=== PATIENT | male | born 1940 | race Caucasian/White ===

== ENCOUNTER 2021-05-15 07:07 | Outpatient (REF) | payer MEDICARE, SELFPAY ==
[2021-05-15 11:16] LABS: MANUAL DIFF FLAG NO
[2021-05-15 11:22] LABS: Glucose Urine UA NEG (NEG); Leukocyte Esterase Urine NEG (NEG); Nitrite Urine NEG (NEG); Specific Gravity - Urine 1.025 (1.005-1.025); Urine Blood TRACE (NEG); Urine Ketones NEG (NEG); Urine Protein NEG (NEG-TRACE)
[2021-05-15 11:23] LABS: Appearance Urine CLEAR; Color Urine YELLOW
[2021-05-15 11:33] LABS: Basophils Absolute Auto 0.1 X10*3/uL (0.0-0.2); Basophils Percent Auto 0.8 % (0-2); Eosinophils Absolute Auto 0.4 X10*3/uL (0.0-0.4); Eosinophils Percent Auto 6.4 % (0-4); Hematocrit 40.8 % (42-52); Hemoglobin 13.1 g/dl (14.0-18.0); Imm Gran Abs Auto 0.03 X10*3/uL (0.00-0.03); Imm Gran Pct Auto 0.5 % (0.0-0.4); Lymphocytes Absolute Auto 1.2 X10*3/uL (1.2-4.9); Lymphocytes Percent Auto 17.9 % (20-40); Mean Corpuscular HGB Conc 32.1 g/dl (31.0-36.0); Mean Corpuscular Hemoglobin 30.1 pg (27.0-33.0); Mean Corpuscular Volume 93.8 fL (80-98); Mean Platelet Volume 9.5 fL (9.4-12.4); Monocytes Absolute Auto 0.7 X10*3/uL (0.1-1.2); Monocytes Percent Auto 10.3 % (2-11); Neutrophils Absolute Auto 4.1 X10*3/uL (2.0-8.3); Neutrophils Percent Auto 64.1 % (45-73); Platelet Count 214 X10*3/uL (160-400); Red Blood Count 4.35 X10*6/uL (4.60-5.80); Red Cell Distribution Width 13.5 % (11.0-16.0); White Blood Count 6.4 X10*3/uL (4.8-10.8)
[2021-05-15 11:53] LABS: Alanine Aminotransferase 25 U/L (0-40); Albumin Level 4.1 g/dL (3.5-5.0); Alkaline Phosphatase 62 U/L (39-117); Anion Gap 13 (12-20); Aspartate Amino Transferase 24 U/L (5-37); Bilirubin Total 0.5 mg/dL (0.0-1.0); Blood Urea Nitrogen 17 mg/dL (9-16); Calcium 9.3 mg/dL (8.4-10.2); Carbon Dioxide 26 mmol/L (22-29); Chloride 104 mmol/L (96-108); Cholesterol 176 mg/dL; Estimated Glomerular Filt Rate > 60; Glucose Fasting 114 mg/dL (60-99); HDL Cholesterol 54 mg/dL; LDL Cholesterol Calculated 101 mg/dl; Potassium 4.6 mmol/L (3.3-5.1); Sodium 138 mmol/L (135-145); Total Protein 6.5 g/dL (6.5-8.0); Triglycerides 107 mg/dL
[2021-05-15 12:04] LABS: Prostate Specific Antigen 0.62 ng/mL (<0.05-4.0)
[2021-05-15 12:06] LABS: Mucus Urine 1+ /LPF; WBC Urine 0-2 /HPF (0-4)
== END 2021-05-15 07:08 | disposition home or self-care (01) ==
LOC: HO.HMGCLDS 07:07
PROVIDERS: PCP Internal Medicine; Visit Provider Internal Medicine
DX: Z00.00 Encounter for general adult medical examination without abnormal findings (principal); I10 Essential (primary) hypertension; E78.00 Pure hypercholesterolemia, unspecified; N40.0 Benign prostatic hyperplasia without lower urinary tract symptoms; Z12.5 Encounter for screening for malignant neoplasm of prostate
CPT/HCPCS: 36415; 80053; 80061; 81001; 84153; 85025

== ENCOUNTER 2021-11-19 09:22 | Emergency (ER) | payer MEDICARE, SELFPAY ==
--- NOTE | 2021-11-19 | ECG_ITS ---
Test Reason : arrhythmia Blood Pressure : / mmHG Vent. Rate : 105 BPM Atrial Rate : 344 BPM P-R Int : 000 ms QRS Dur : 078 ms QT Int : 322 ms P-R-T Axes : 064 015 055 degrees QTc Int : 425 ms Atrial flutter with variable A-V block Nonspecific T wave abnormality Abnormal ECG No previous ECGs available Referred By: Generic ED Physician Electronically Signed By:PIERRE PEREZ MD
--- NOTE | ~2021-11-19 | XR_ITS ---
EXAMINATION: XR CHEST CLINICAL INFORMATION: Heart palpitations COMPARISON: None TECHNIQUE: Frontal view of the chest was obtained. FINDINGS: The cardiac and mediastinal contours are normal. The lungs are clear. There is no pleural effusion or pneumothorax. There are degenerative changes of the spine. XR/XR chest 1V IMPRESSION: Unremarkable examination.
[2021-11-19 09:29] VITALS: BP 126/72; PULSE 69; RESP 20; TEMP 36.6; O2SAT 98; BMI 23.6
--- NOTE | 2021-11-19 09:42 | ED.ARRPALP ---
HPI - Arrhythmia/Palpitations General Chief Complaint: Arrhythmia/Palpitations Stated Complaint: irregular heart beat Time Seen by Provider: 11/19/21 09:41 Source: patient Mode of arrival: ambulatory Limitations: no limitations History of Present Illness HPI narrative: 81 y/o male with history of HTN and HLD presents to the ER from his PCP's (Dr. Truong) office with rapid atrial flutter found on routine visit today. Patient reports he has a history of an irregular heart beat that Dr. Truong found from time to time but he never thought much of it. He has never seen a Acid Recovery Operator and he is not on anticoagulation. He denies any chest pain, SOB, pre-syncope, or fatigue. Today Dr. Truong found his heart rate to be fast and in an irregular rhythm. He denies palpitations. No leg swelling. He is on lisinopril and simvastatin only. MD complaint: irregular heart beat Onset (ago): unknown Duration: intermittent Severity: mild Associated symptoms: denies other symptoms Related Data Previous Rx's Medication Instructions Recorded apixaban 5 mg tablet (Eliquis) 5 mg PO BID #60 tab 11/19/21 metoprolol succinate 25 mg 25 mg PO DAILY #30 tab 11/19/21 tablet,extended release 24 hr (Toprol XL) Allergies Allergy/AdvReac Type Severity Reaction Status Date / Time No Known Allergies Allergy Verified 11/19/21 09:57 Review of Systems Review of Systems: Constitutional: No Fever, No Chills ENT/Mouth: No sore throat, No Rhinorrhea, No Swallowing Difficulty Eyes: No vision changes Cardiovascular: No Chest Pain, No SOB, No Orthopnea, No Edema Respiratory: No Cough, No Sputum, No Wheezing, No dyspnea Gastrointestinal: No Nausea, No Vomiting, No Diarrhea, No abdominal Pain Genitourinary: No Dysuria, No Urinary Frequency, No Hematuria Musculoskeletal: No joint pain, No Myalgias Skin: No Skin Lesions, No rash Neuro: No Weakness, No Numbness, No Dizziness, No Headache Psych: No Anxiety/Panic, No Depression Heme/Lymph: No Bruising, No Lymphadenopathy Endocrine: No Polyuria, No Polydipsia [facility] Past Medical History Medical History (Updated 11/19/21 @ 12:36 by RUIZ Dumont) High cholesterol HTN (hypertension) Social History Social History Advance Directives: Yes Advance Directives Information Provided: Yes Advance Directives on File: No Physical Exam Vital Signs: Vital Signs: Last Vital Signs Temp 98 F 11/19/21 09:29 Pulse 87 11/19/21 12:13 Resp 16 11/19/21 12:13 BP 140/83 H 11/19/21 12:13 Pulse Ox 98 11/19/21 12:13 BMI result Body Mass Index 23.6 Appearance: Alert. Oriented X3. No acute distress. Eyes: Pupils equal, round and reactive to light. ENT: Pharynx normal. Neck: Normal inspection. Neck supple. CVS: Irregularly irregular, rapid rate in low 100s. Pulses normal. Respiratory: No respiratory distress. Breath sounds normal. Abdomen: Soft and nontender. +BS x4 Skin: Skin warm and dry. Normal skin color. Normal skin turgor. No rashes. Extremities: No lower extremity edema. No calf tenderness Neuro: Oriented X 3. No motor deficit. No sensory deficit. Course Course Course Narrative: 81 y/o male with history of HTN & HLD presents to the ER with rapid atrial flutter found on routine exam at PCP's office today. He is asymptomatic. On arrival his HR 69. EKG with HR 105. 20 in the PA for Na was the leading all in for the 5 year program for the 5 for the thigh area the change no was fall from the beginning and then they switched to sit has assorted then like he well use for to 5 now it it is for what ongoing over the was they were taking you in as transfer the plate into the program after out yet yet the sign that upon transfer as a grad to the last thing she last a they were taking she review his arm everybody your blood I will see like 15 years like [employer] interfering in her hi new 2. Like wheeze phone numbers or ear CHADSVASc is 3. Will need to discuss risks and benefits of anticoagulation. He reports a slip and fall on ice 2 weeks ago - no head strike or LOC. No hx multiple falls. Reevaluation(s) Reevaluation #1: HR improved to the 80s after 1 dose of PO Toprol XL 25 mg. BP 140s. He feels well. We had a discussion about the risks and benefits of anticoagulation and patient agrees with starting anticoagulation to help reduce stroke. Will send 1 month supply of Eliquis as well as Toprol XL. Will refer to Cardiology for further workup. He will follow-up with Dr. Truong as well. At this time is stable for discharge home with Toby RIVERO and Martinez. Patient agrees with plan. MDM - Arrhythmia/Palpitations Medical Records Attestation: I reviewed the patient's medical records. Lab Data Attestation: I reviewed the patient's lab results. Result diagrams: 11/19/21 10:17 11/19/21 10:17 Labs: Lab Results 11/19/21 11/19/21 11/19/21 Range/Units 10:17 10:17 10:17 WBC 7.2 (4.8-10.8) X10*3/uL RBC 4.56 L (4.60-5.80) X10*6/uL Hgb 13.7 L (14.0-18.0) g/dl Hct 42.6 (42.0-52.0) % MCV 93.4 (80.0-98.0) fL MCH 30.0 (27.0-33.0) pg MCHC 32.2 (31.0-36.0) g/dl RDW 13.4 (11.0-16.0) % Plt Count 177 (160-400) X10*3/uL MPV 8.9 L (9.4-12.4) fL Immature Gran % (Auto) 0.1 (0.0-0.4) % Neut % (Auto) 73.2 H (45-73) % Lymph % (Auto) 13.1 L (20-40) % Russell % (Auto) 9.2 (2-11) % Eos % (Auto) 3.8 (0-4) % Baso % (Auto) 0.6 (0-2) % Lymph # (Auto) 0.9 L (1.2-4.9) X10*3/uL Russell # (Auto) 0.7 (0.1-1.2) X10*3/uL Eos # (Auto) 0.3 (0.0-0.4) X10*3/uL Baso # (Auto) 0.0 (0.0-0.2) X10*3/uL Abs Immat Gran (auto) 0.01 (0.00-0.03) X10*3/uL Absolute Neuts (auto) 5.2 (2.0-8.3) x10*3/uL Absolute Nucleated RBC 0.000 (0.0-0.012) X10*3/uL Nucleated RBC % (auto) 0.0 (0.0-0.2) /100WBC PT 11.4 (9.9-13.0) SEC INR 1.0 (0.9-1.1) APTT 35.5 (24.1-38.0) SEC Sodium 142 (135-145) mmol/L Potassium 5.0 (3.3-5.1) mmol/L Chloride 107 (96-108) mmol/L Carbon Dioxide 29 (22-29) mmol/L Anion Gap 11 L (12-20) BUN 19 H (9-16) mg/dL Creatinine 0.92 (0.5-1.4) mg/dL Estim Creat Clear Calc 70.2 Estimated GFR > 60 Random Glucose 130 H (60-115) mg/dL Calcium 9.5 (8.4-10.2) mg/dL Magnesium 2.0 (1.6-2.6) mg/dL Total Bilirubin 0.5 (0.0-1.0) mg/dL Direct Bilirubin 0.2 (0.0-0.5) mg/dL AST 21 (5-37) U/L ALT 22 (0-40) U/L Alkaline Phosphatase 72 (39-117) U/L Troponin I High Sens (<3.5-35.0) ng/L B-Natriuretic Peptide (<100) pg/mL Total Protein 6.9 (6.5-8.0) g/dL Albumin 4.1 (3.5-5.0) g/dL Urine Color Urine Appearance Urine pH (5.0-8.0) Ur Specific Mason (1.005-1.025) Urine Protein (NEG-TRACE) MG/DL Urine Glucose (UA) (NEG) MG/DL Urine Ketones (NEG) MG/DL Urine Blood (NEG) Urine Nitrite (NEG) Ur Leukocyte Esterase (NEG) Urine RBC (0) /HPF Urine WBC (0-4) /HPF Ur Squamous Epith Cells /LPF Urine Bacteria /LPF Urine Mucus /LPF COVID-19 ([facility]) (Negative) COVID-19 Clin Com 11/19/21 11/19/21 11/19/21 Range/Units 10:17 10:17 10:46 WBC (4.8-10.8) X10*3/uL RBC (4.60-5.80) X10*6/uL Hgb (14.0-18.0) g/dl Hct (42.0-52.0) % MCV (80.0-98.0) fL MCH (27.0-33.0) pg MCHC (31.0-36.0) g/dl RDW (11.0-16.0) % Plt Count (160-400) X10*3/uL MPV (9.4-12.4) fL Immature Gran % (Auto) (0.0-0.4) % Neut % (Auto) (45-73) % Lymph % (Auto) (20-40) % Russell % (Auto) (2-11) % Eos % (Auto) (0-4) % Baso % (Auto) (0-2) % Lymph # (Auto) (1.2-4.9) X10*3/uL Russell # (Auto) (0.1-1.2) X10*3/uL Eos # (Auto) (0.0-0.4) X10*3/uL Baso # (Auto) (0.0-0.2) X10*3/uL Abs Immat Gran (auto) (0.00-0.03) X10*3/uL Absolute Neuts (auto) (2.0-8.3) x10*3/uL Absolute Nucleated RBC (0.0-0.012) X10*3/uL Nucleated RBC % (auto) (0.0-0.2) /100WBC PT (9.9-13.0) SEC INR (0.9-1.1) APTT (24.1-38.0) SEC Sodium (135-145) mmol/L Potassium (3.3-5.1) mmol/L Chloride (96-108) mmol/L Carbon Dioxide (22-29) mmol/L Anion Gap (12-20) BUN (9-16) mg/dL Creatinine (0.5-1.4) mg/dL Estim Creat Clear Calc Estimated GFR Random Glucose (60-115) mg/dL Calcium (8.4-10.2) mg/dL Magnesium (1.6-2.6) mg/dL Total Bilirubin (0.0-1.0) mg/dL Direct Bilirubin (0.0-0.5) mg/dL AST (5-37) U/L ALT (0-40) U/L Alkaline Phosphatase (39-117) U/L Troponin I High Sens 7.8 (<3.5-35.0) ng/L B-Natriuretic Peptide 491 H (<100) pg/mL Total Protein (6.5-8.0) g/dL Albumin (3.5-5.0) g/dL Urine Color YELLOW Urine Appearance HAZY Urine pH 6.0 (5.0-8.0) Ur Specific Mason >= 1.030 H (1.005-1.025) Urine Protein TRACE (NEG-TRACE) MG/DL Urine Glucose (UA) NEG (NEG) MG/DL Urine Ketones NEG (NEG) MG/DL Urine Blood 1+ H (NEG) Urine Nitrite NEG (NEG) Ur Leukocyte Esterase NEG (NEG) Urine RBC 1-4 (0) /HPF Urine WBC 0 (0-4) /HPF Ur Squamous Epith Cells TRACE /LPF Urine Bacteria NONE /LPF Urine Mucus 2+ /LPF COVID-19 ([facility]) Negative (Negative) COVID-19 Clin Com See Note ECG Data Attestation: I personally reviewed and interpreted this ECG as follows: ECG interpretation date: 11/19/21 ECG interpretation time: 10:45 Prior ECG tracings: available for review Interpretation: Atrial flutter, heart rate 105 beats per minute, nonspecific T-wave abnormality, no ST segment elevations or depressions. Critical Care Time Critical Care Time Critical Care Time: No Discharge Plan Discharge Clinical Impression: Atrial flutter Patient Disposition: Home, Self-Care Instructions: Atrial Flutter (DC), Blood Thinners (ED) Additional Instructions: Take the prescribed medication (Toprol XL) each morning to help control your heart rates Take the prescribed blood thinner (Eliquis) to help reduce the risk of stroke Follow up with [facility] Recovery Operator for further workup and evaluation Follow up with Dr. Truong in 1 week If you develop new or worsening symptoms call 911 or come back to the ER for further evaluation. Prescriptions: New metoprolol succinate [Toprol XL] 25 mg tablet extended release 24 hr 25 mg PO DAILY Qty: 30 0RF Eliquis 5 mg tablet 5 mg PO BID Qty: 60 0RF Referrals: Jb Perez MD [Physician] - 2 days (new onset aflutter)
[2021-11-19 10:23] LABS: MANUAL DIFF FLAG NO
[2021-11-19 10:26] LABS: Basophils Percent Auto 0.6 % (0-2); Eosinophils Absolute Auto 0.3 X10*3/uL (0.0-0.4); Eosinophils Percent Auto 3.8 % (0-4); Hematocrit 42.6 % (42.0-52.0); Hemoglobin 13.7 g/dl (14.0-18.0); Imm Gran Abs Auto 0.01 X10*3/uL (0.00-0.03); Imm Gran Pct Auto 0.1 % (0.0-0.4); Lymphocytes Absolute Auto 0.9 X10*3/uL (1.2-4.9); Lymphocytes Percent Auto 13.1 % (20-40); Mean Corpuscular HGB Conc 32.2 g/dl (31.0-36.0); Mean Corpuscular Volume 93.4 fL (80.0-98.0); Mean Platelet Volume 8.9 fL (9.4-12.4); Monocytes Absolute Auto 0.7 X10*3/uL (0.1-1.2); Monocytes Percent Auto 9.2 % (2-11); Neutrophils Absolute Auto 5.2 x10*3/uL (2.0-8.3); Neutrophils Percent Auto 73.2 % (45-73); Platelet Count 177 X10*3/uL (160-400); Red Blood Count 4.56 X10*6/uL (4.60-5.80); Red Cell Distribution Width 13.4 % (11.0-16.0); White Blood Count 7.2 X10*3/uL (4.8-10.8)
[2021-11-19 10:30] VITALS: BP 149/95; PULSE 110; RESP 16; O2SAT 99
[2021-11-19 10:33] LABS: Prothrombin Time 11.4 SEC (9.9-13.0)
[2021-11-19 10:36] LABS: Partial Thromboplastin Time 35.5 SEC (24.1-38.0)
[2021-11-19] MEDS: Metoprolol Succinate ER 25 MG TAB.ER.24H PO (10:43)
[2021-11-19 10:49] LABS: Troponin-I High Sensitivity 7.8 ng/L (<3.5-35.0)
[2021-11-19 10:54] LABS: Alanine Aminotransferase 22 U/L (0-40); Albumin Level 4.1 g/dL (3.5-5.0); Alkaline Phosphatase 72 U/L (39-117); Anion Gap 11 (12-20); Aspartate Amino Transferase 21 U/L (5-37); Bilirubin Direct 0.2 mg/dL (0.0-0.5); Bilirubin Total 0.5 mg/dL (0.0-1.0); Blood Urea Nitrogen 19 mg/dL (9-16); Calcium 9.5 mg/dL (8.4-10.2); Carbon Dioxide 29 mmol/L (22-29); Chloride 107 mmol/L (96-108); Creatinine Clr Calc Pharmacy 70.2; Estimated Glomerular Filt Rate > 60; Glucose Random 130 mg/dL (60-115); Sodium 142 mmol/L (135-145); Total Protein 6.9 g/dL (6.5-8.0)
[2021-11-19 10:55] LABS: Appearance Urine HAZY; Color Urine YELLOW; Glucose Urine UA NEG (NEG); Leukocyte Esterase Urine NEG (NEG); Nitrite Urine NEG (NEG); Specific Gravity - Urine >= 1.030 (1.005-1.025); UACC Culture Trigger NO; Urine Blood 1+ (NEG); Urine Ketones NEG (NEG); Urine Protein TRACE MG/DL (NEG-TRACE)
[2021-11-19 11:02] LABS: COVID-19 Test Negative (Negative)
[2021-11-19 11:11] LABS: Mucus Urine 2+ /LPF; Squamous Epithelial Cell Urine TRACE /LPF; WBC Urine 0 /HPF (0-4)
[2021-11-19 11:14] LABS: B Type Natriuretic Peptide 491 pg/mL (<100)
[2021-11-19 12:13] VITALS: BP 140/83; PULSE 87; RESP 16; O2SAT 98
== END 2021-11-19 13:00 | disposition home or self-care (01) ==
PROVIDERS: Physician Assistant; Emergency Provider Emergency Medicine; PCP Internal Medicine
DX: I48.92 Unspecified atrial flutter (principal); R00.2 Palpitations; R06.02 Shortness of breath; Z20.822 Contact with and (suspected) exposure to COVID-19; Z79.899 Other long term (current) drug therapy
CPT/HCPCS: 36415; 71045; 80048; 80076; 81001; 83735; 83880; 84484; 85025; 85610; 85730; 87635; 93005; 99284

== ENCOUNTER → 2021-11-20 11:53 | Outpatient (BNVA) | payer MEDICARE, SELFPAY | PROVIDERS: PCP Internal Medicine; Visit Provider Internal Medicine Cardiovascular Disease | DX: I48.92 Unspecified atrial flutter (principal); I10 Essential (primary) hypertension | CPT/HCPCS: 93005; 99202 ==

== ENCOUNTER → 2021-11-21 12:54 | Outpatient (REF) | payer MEDICARE, SELFPAY ==
--- NOTE | 2021-11-21 12:59 | CA_ITS ---
Transthoracic Echocardiogram Patient (Last, First, Middle): Gregory Dior K Gender: Male Date of : 1940 Age: 81 Procedure Date: 11/21/2021 Procedure Type: Transthoracic Echocardiogram Location: OP Height: 185.42 cm Weight: 78.93 kg BSA: 2.03 m2 Heart Rate: bpm BP: 120 / 75 mmHg Pulp Grinder Feeder: Referring MD: Kasi Pike MD Catia Designer: Kasi Pike MD Symptoms: I48.92 - Unspecified atrial flutter Study Quality: Fair ECG Rhythm: Atrial flutter Conclusions: - 1. Mildly reduced LV systolic function with LVEF of 45-50% 2. Cardiac valvular Doppler within normal limits 3. Normal RV systolic pressure 4. No gross pericardial effusion Findings Left Ventricle Normal left ventricular cavity size. There is normal left ventricular wall thickness. The left ventricular systolic function is mildly decreased. The visually estimated ejection fraction is between 45-50%. There is mild global hypokinesis. Diastolic function is indeterminate on the basis of available data. Right Ventricle Normal right ventricular cavity size and systolic function. Atria The left atrium is likely dilated. There is lipomatous hypertrophy of the interatrial septum. There is no evidence of interatrial shunt. The right atrium is normal in size. Aortic Valve There is mild calcification of the aortic valve. There is no aortic valve stenosis. There is no aortic valve regurgitation. Mitral Valve There is mild anterior and posterior mitral leaflet thickening. There is mild mitral annular calcification. There is trace mitral valve regurgitation. There is no mitral valve stenosis. Pulmonic Valve The pulmonic valve was not well visualized. Tricuspid Valve Likely normal tricuspid valve structure and function. There is trace tricuspid valve regurgitation. The right ventricular systolic pressure is normal. The right ventricular systolic pressure is 19 mmHg. Normal right atrial pressure. There is no evidence of pulmonary hypertension. Great Vessels All visible segments of the aorta are normal in size. The pulmonary artery was not well visualized. Venous The inferior vena cava is normal in size and collapses greater than 50% with inspiration. Pericardium/Pleural There is no evidence of pericardial effusion. Prior Study Comparison No prior study available for comparison. Measurements 2D Linear Measurements IVSd: 0.99 0.6-0.9/0.6-1.0 cm LVIDd: 4.28 3.9-5.3/4.2-5.9 cm LVIDd Index: 2.11 2.4-3.2/2.2-3.1 cm/m2 LVIDs: 3.15 2.0-3.6 cm LVPWd: 1.03 0.7-1.1 cm LA Diam: 4.20 2.7-3.8/3.0-4.0 cm LAIDs Index: 2.07 1.5-2.3 cm/m2 LV Mass: 178.26 67-162/88-224 g LV Mass Index: 87.81 43-95/49-115 g/m2 LVOT Diam: 2.20 3.0+(-)1.3 cm 2D Systolic Function EF 4C: 47.50 >55% EF 2C: 48.70 >55% EF BiP: 48.70 >55% Mitral Valve MV Pk E: 0.62 MV PK A: 0.57 MV Decel Time: 229.00 E/A: 1.10 E'Lateral: 12.50 E'Medial: 4.68 E/E' Med: 13.30 E/E' Lat: 5.00 PHT: 67.00 MVA PHT: 3.28 Decel [place]: 2.71 Aortic Valve AoV Pk Reggie: 0.92 AoV Mn Reggie: 0.73 AoV VTI: 0.17 AoV Pk Grad: 3.00 Aov Mn Grad: 2.00 LUBNA Cont.VTI: 2.47 LVOT LVOT Pk Reggie: 0.71 LVOT Mn Reggie: 0.46 LVOT VTI: 0.11 LVOT Pk Grad: 2.00 LVOT Mn Grad: 1.00 LVOT Diam: 2.20 LVOT Area: 3.80 Diastolic Function MV Pk E: 0.62 MV Pk A: 0.57 E/A: 1.10 E'Medial: 4.68 E/E' Med: 13.30 E' Laterial: 12.50 E/E' Lat: 5.00 Right Ventricle TAPSE (mm): 15.00 TVS' Reggie: 9.00 Tricuspid Valve TR Pk Reggie: 16.00 RA Press: 3.00 RVSP: 19.00 Great Vessels Aorta Ao Asc: 3.40 2.1-3.4 cm Pulmonary Valve PV Pk Reggie: 0.57 Peak PV Grad: 1.00 Updated in Other Vendor System with Status of Final Kasi Pike MD electronically signed on 11/22/2021 11:34:47 AM with status of Final
--- NOTE | 2021-11-21 12:59 | HM_ITS ---
Conclusion: 1. Patient was monitored for total period of 2 days and 22 hours 2. Baseline with atrial flutter/fibrillation with average heart of 91 beats per minute, with borderline rate control 3. No significant pauses or bradycardia noted 4. Very rare PVCs noted 5. No patient reported events MTDD
== END ==
LOC: HO.CARD 12:54
PROVIDERS: PCP Internal Medicine; Visit Provider Internal Medicine Cardiovascular Disease
DX: I48.92 Unspecified atrial flutter (principal)
CPT/HCPCS: 93242; 93306

== ENCOUNTER 2021-12-17 09:12 | Day surgery (SDC) | payer MEDICARE, SELFPAY ==
[2021-12-12 14:41] VITALS: BMI 23.6
--- NOTE | 2021-12-16 09:35 | HO.ANESPROP2 ---
Documented by User: Nadya Gutierrez NP 12/16/21 09:39 HPI - Anesthesia Eval Consult details Narrative: 81yo M for Cardioversion Eliquis for aflutter PMFSH Active Problems Active Problems: All Active Problems (Updated 12/12/21 @ 14:44 by Yadi Wade RN) HTN (hypertension) (Acute) Atrial flutter (Acute) Past Medical History Medical History (Updated 12/12/21 @ 14:44 by Yadi Wade RN) Atrial flutter Hard of hearing High cholesterol HTN (hypertension) Surgical History Surgical History (Updated 12/12/21 @ 14:45 by Yadi Wade RN) History of surgery Hx of colonoscopy Social History Social History Are you a primary intensive care ambulance paramedic to a significant other at home: No Do you presently have visiting nurse or other home services: No Patient Tobacco Use Status: Former Tobacco user Quit Date: 2001 Tobacco use type: Cigarette Are you DNR?: No Advance Directives: No Advance Directives Information Provided: Yes Advance Directives on File: No Recently lost weight without trying: No Nutrition Risks: Surgical patient >75years Poor oral hygiene: No (upper partial) Meds Allergies Allergy/AdvReac Type Severity Reaction Status Date / Time No Known Allergies Allergy Verified 12/12/21 14:40 Home Medications Medication Instructions Recorded Confirmed Last Taken Type lisinopril 5 mg tablet 5 mg PO DAILY 11/20/21 12/12/21 Unknown History simvastatin 20 mg tablet 20 mg PO BEDTIME 11/20/21 12/12/21 Unknown History Exam Exam Date and Time: December 16, 2021 0935 Height,Weight and Vital Signs: Height 6 ft Weight 78.925 kg Pertinent Lab Results Pertinent Lab Results: Laboratory Tests 11/19/21 11/19/21 10:17 10:17 WBC 7.2 Hgb 13.7 L Hct 42.6 Plt Count 177 Sodium 142 Potassium 5.0 Chloride 107 Carbon Dioxide 29 BUN 19 H Creatinine 0.92 Narrative Narrative: EKG 11/2021 typical atrial flutter with variable AV conduction with LVH 3 Day Holter 11/2021 1. Patient was monitored for total period of 2 days and 22 hours 2. Baseline with atrial flutter/fibrillation with average heart of 91 beats per minute, with borderline rate control 3. No significant pauses or bradycardia noted 4. Very rare PVCs noted 5. No patient reported events ECHO 11/2021 Conclusions: - 1. Mildly reduced LV systolic function with LVEF of 45-50% ? ? 2.? Cardiac valvular Doppler within normal limits? 3.? Normal RV systolic pressure? 4. No gross pericardial effusion? Assessment and Plan Assessment Anesthesia Assessment: Chart Reviewed Documented by User: Ya Aragon MD 12/17/21 10:30 PMFSH Past Medical History Medical History (Updated 12/12/21 @ 14:44 by Yadi Wade RN) Atrial flutter Hard of hearing High cholesterol HTN (hypertension) Family History Family history of problems with anesthesia: No Surgical History Surgical History (Updated 12/12/21 @ 14:45 by Yadi Wade RN) History of surgery Hx of colonoscopy History of Problems with Anesthesia: No Social History Social History Are you a primary intensive care ambulance paramedic to a significant other at home: No Do you presently have visiting nurse or other home services: No Patient Tobacco Use Status: Former Tobacco user Quit Date: 2001 Tobacco use type: Cigarette Are you DNR?: No Advance Directives: No Advance Directives Information Provided: Yes Advance Directives on File: No Recently lost weight without trying: No Nutrition Risks: Surgical patient >75years Poor oral hygiene: No (upper partial) Meds Allergies Allergy/AdvReac Type Severity Reaction Status Date / Time No Known Allergies Allergy Verified 12/12/21 14:40 Home Medications Medication Instructions Recorded Confirmed Last Taken Type lisinopril 5 mg tablet 5 mg PO DAILY 11/20/21 12/12/21 Unknown History simvastatin 20 mg tablet 20 mg PO BEDTIME 11/20/21 12/12/21 Unknown History Exam Airway Mallampati Class: II TM Dist: >3cm Neck ROM: Full Partial: Upper (Left at home) Heart: irreg Lungs: cta Assessment and Plan Assessment Anesthesia Assessment: Anesthesia Plan Discussed and Chart Reviewed Final Anesthetic Review Family History of Problems with Anesthesia: No History of Problems with Anesthesia: No NPO: Yes (Sip water with meds) ASA Class: III Final Preanesthetic Review: No Changes in Pt Med Stat, Meds/Allgs Chart Reviewed and Consent Obtained/Reviewed Patient Risk: Intermediate Procedure Risk: Intermediate Anesthetic Plan Anesthetic Plan: MAC: Disposition: Standard PACU
[2021-12-17 09:30] VITALS: BP 145/89; PULSE 106; RESP 16; TEMP 36.8; O2SAT 98; BMI 23.6
[2021-12-17] MEDS: Lactated Ringers 1,000 ML 100 ML IVCONT (09:47)
--- NOTE | 2021-12-17 10:53 | MHC.SHP ---
Pre-Procedural Eval Section A Date of Service: 12/17/21 The patient is an INPATIENT: No Changes since office visit: Yes Patient answered all questions; No Cold of Flu in the past 2 weeks, No New Medical Problems and No Changes in Medication The History & Physical has been completed within 30 days and I have reviewed it.: Yes Section B Chief Complaint: A-Fib Allergies: Allergies Allergy/AdvReac Type Severity Reaction Status Date / Time No Known Allergies Allergy Verified 12/12/21 14:40 Plan I have reviewed the history and physical and performed a pertinent physical examination on my patient. No changes have occurred unless specified.
--- NOTE | 2021-12-17 11:12 | ECG_ITS ---
Test Reason : S/P CARDIOVERSION Blood Pressure : / mmHG Vent. Rate : 072 BPM Atrial Rate : 072 BPM P-R Int : 182 ms QRS Dur : 084 ms QT Int : 384 ms P-R-T Axes : 039 019 044 degrees QTc Int : 420 ms Normal sinus rhythm Normal ECG When compared with ECG of 19-NOV-2021 10:20, Sinus rhythm has replaced Atrial flutter Nonspecific T wave abnormality, improved in Inferior leads Nonspecific T wave abnormality no longer evident in Anterolateral leads Referred By: Kasi Pike Electronically Signed By:KASI PIKE MD
--- NOTE | 2021-12-17 11:22 | HO.CARDIVERS ---
Cardioversion Procedure Note Cardioversion Date of Procedure: Today Ordering Provider: Myself Performing Provider: Myself Indication for Procedure: Persistent atrial flutter Pre-Op Diagnosis: Same Post-Op Diagnosis: Normal sinus rhythm Performed with Transesophageal Echo: No History: See my office note Consent: Verbal and Written consent was obtained from the patient before starting and after confirming oral anticoagulation The patient was made aware of the risk of synchronized cardioversion including risk, benefits, alternatives 2nd opinion Procedure: After consent obtained, cardioversion pads were attached in anteroposterior configuration and the patient was sedated by the anesthesia team. Once adequate sedation achieved, delivered 200 joules of biphasic synchronized energy in anteroposterior configuration Complications: None Impression: Successfully converted to sinus rhythm Recommendations: 1. Twelve lead EKG 2. Continue full oral anticoagulation uninterrupted indefinitely for now 3. Follow-up Holter monitor in office visit in few weeks
[2021-12-17 11:23] VITALS: BP 112/77; PULSE 70; RESP 16; TEMP 36.7; O2SAT 97
[2021-12-17 11:28] VITALS: BP 110/70; PULSE 69; RESP 16; O2SAT 98
[2021-12-17 11:33] VITALS: BP 123/74; PULSE 72; RESP 18; O2SAT 98
[2021-12-17 11:38] VITALS: BP 123/75; PULSE 68; RESP 18; O2SAT 98
[2021-12-17 11:53] VITALS: BP 130/80; PULSE 67; RESP 18; TEMP 36.6; O2SAT 98
== END 2021-12-17 12:24 | disposition home or self-care (01) ==
PROVIDERS: PCP Internal Medicine; Visit Provider Internal Medicine Cardiovascular Disease
PROC: 5A2204Z Restoration of Cardiac Rhythm, Single (ICD-10-PCS; principal; 2021-12-17 11:00)
DX: I48.92 Unspecified atrial flutter (principal); I10 Essential (primary) hypertension; E78.00 Pure hypercholesterolemia, unspecified; Z79.01 Long term (current) use of anticoagulants; Z79.899 Other long term (current) drug therapy; Z87.891 Personal history of nicotine dependence
CPT/HCPCS: 92960; 93005

== ENCOUNTER → 2021-12-30 10:32 | Outpatient (REF) | payer MEDICARE, SELFPAY ==
--- NOTE | 2021-12-30 10:38 | HM_ITS ---
* Total monitoring time 2 days and 22 hours. * Underlying rhythm is atrial flutter. Some areas appear to be atrial fibrillation. Average rate 91/Min. Range 63 to 146/Min. * About 20% the time, rate greater than 100/Min. * Rare ventricular ectopy with minimal burden. * No patient events. * Overall, slightly less than optimal rate control of atrial fibrillation. MTDD
== END ==
LOC: HO.CARD 10:32
PROVIDERS: Visit Provider Internal Medicine Cardiovascular Disease
DX: I48.92 Unspecified atrial flutter (principal)
CPT/HCPCS: 93242

== ENCOUNTER → 2022-01-19 14:36 | Outpatient (BNVA) | payer MEDICARE, SELFPAY | PROVIDERS: PCP Internal Medicine; Referring Provider Internal Medicine; Visit Provider Internal Medicine Cardiovascular Disease | DX: I48.92 Unspecified atrial flutter (principal) | CPT/HCPCS: 93005; 99212 ==

== ENCOUNTER → 2022-07-02 08:16 | Outpatient (REF) | payer MEDICARE, SELFPAY ==
--- NOTE | 2022-07-02 08:43 | CA_ITS ---
Transthoracic Echocardiogram Patient (Last, First, Middle): Gregory Dior K Gender: Male Date of : 1940 Age: 82 Procedure Date: 07/02/2022 Procedure Type: Transthoracic Echocardiogram Location: OP Height: 185.42 cm Weight: 77.11 kg BSA: 2.01 m2 Heart Rate: bpm BP: 150 / 80 mmHg Engineering Illustrator: TO Referring MD: Kasi Pike MD Symptoms: I42.9 - Cardiomyopathy, unspecified Study Quality: Fair ECG Rhythm: Sinus Conclusions: - The left ventricular systolic function is low normal. The calculated ejection fraction is 52% by biplane method. Findings Left Ventricle Normal left ventricular cavity size. There is normal left ventricular wall thickness. The left ventricular systolic function is low normal. The calculated ejection fraction is 52% by biplane method. There is no evidence of regional wall motion abnormalities. Diastolic function is normal for age. Prior Study Comparison No significant change compared to prior study dated: 11/21/2021. Measurements 2D Linear Measurements IVSd: 0.82 0.6-0.9/0.6-1.0 cm LVIDd: 4.63 3.9-5.3/4.2-5.9 cm LVIDd Index: 2.30 2.4-3.2/2.2-3.1 cm/m2 LVIDs: 3.07 2.0-3.6 cm LVPWd: 0.88 0.7-1.1 cm LA Diam: 4.00 2.7-3.8/3.0-4.0 cm LAIDs Index: 1.99 1.5-2.3 cm/m2 LV Mass: 160.68 67-162/88-224 g LV Mass Index: 79.94 43-95/49-115 g/m2 2D Systolic Function EF 4C: 51.30 >55% EF 2C: 54.00 >55% EF BiP: 52.00 >55% Mitral Valve MV Pk E: 0.48 MV PK A: 0.90 MV Decel Time: 267.00 E/A: 0.50 E'Lateral: 4.90 E'Medial: 3.81 E/E' Med: 12.60 E/E' Lat: 9.80 PHT: 78.00 MVA PHT: 2.82 Decel [place]: 1.80 Diastolic Function MV Pk E: 0.48 MV Pk A: 0.90 E/A: 0.50 E'Medial: 3.81 E/E' Med: 12.60 E' Laterial: 4.90 E/E' Lat: 9.80 Tricuspid Valve RA Press: 3.00 Updated in Other Vendor System with Status of Final Ceaasr Muhammad MD electronically signed on 07/02/2022 4:28:10 PM with status of Final
== END ==
LOC: HO.CARD 08:16
PROVIDERS: PCP Internal Medicine; Visit Provider Internal Medicine Cardiovascular Disease
DX: I42.9 Cardiomyopathy, unspecified (principal); I48.92 Unspecified atrial flutter
CPT/HCPCS: 93308

== ENCOUNTER → 2022-07-20 09:07 | Outpatient (BNVA) | payer MEDICARE, SELFPAY | PROVIDERS: PCP Internal Medicine; Referring Provider Internal Medicine; Visit Provider Internal Medicine Cardiovascular Disease | DX: I48.92 Unspecified atrial flutter (principal); I10 Essential (primary) hypertension | CPT/HCPCS: 99212 ==

== ENCOUNTER 2022-07-24 07:20 | Outpatient (REF) | payer MEDICARE, SELFPAY ==
[2022-07-24 11:32] LABS: MANUAL DIFF FLAG NO
[2022-07-24 11:47] LABS: Basophils Absolute Auto 0.1 X10*3/uL (0.0-0.2); Eosinophils Absolute Auto 0.4 X10*3/uL (0.0-0.4); Hematocrit 41.5 % (42.0-52.0); Hemoglobin 13.4 g/dl (14.0-18.0); Imm Gran Abs Auto 0.01 X10*3/uL (0.00-0.03); Imm Gran Pct Auto 0.2 % (0.0-0.4); Lymphocytes Absolute Auto 1.1 X10*3/uL (1.2-4.9); Lymphocytes Percent Auto 17.6 % (20-40); Mean Corpuscular HGB Conc 32.3 g/dl (31.0-36.0); Mean Corpuscular Hemoglobin 30.4 pg (27.0-33.0); Mean Corpuscular Volume 94.1 fL (80.0-98.0); Mean Platelet Volume 9.4 fL (9.4-12.4); Monocytes Absolute Auto 0.7 X10*3/uL (0.1-1.2); Monocytes Percent Auto 11.5 % (2-11); Neutrophils Percent Auto 63.7 % (45-73); Platelet Count 201 X10*3/uL (160-400); Red Blood Count 4.41 X10*6/uL (4.60-5.80); Red Cell Distribution Width 13.3 % (11.0-16.0); White Blood Count 6.2 X10*3/uL (4.8-10.8)
[2022-07-24 12:02] LABS: Alanine Aminotransferase 22 U/L (0-40); Albumin Level 4.2 g/dL (3.5-5.0); Alkaline Phosphatase 73 U/L (39-117); Anion Gap 16 (12-20); Aspartate Amino Transferase 24 U/L (5-37); Bilirubin Total 0.7 mg/dL (0.0-1.0); Blood Urea Nitrogen 22 mg/dL (9-16); Calcium 9.2 mg/dL (8.4-10.2); Carbon Dioxide 25 mmol/L (22-29); Chloride 102 mmol/L (96-108); Cholesterol 168 mg/dL; Estimated Glomerular Filt Rate > 60; Glucose Fasting 107 mg/dL (60-99); HDL Cholesterol 53 mg/dL; LDL Cholesterol Calculated 93 mg/dl; Potassium 4.1 mmol/L (3.3-5.1); Sodium 139 mmol/L (135-145); Triglycerides 110 mg/dL
[2022-07-24 12:27] LABS: Prostate Specific Antigen Scr 0.47 ng/mL (<0.05-4.0)
== END 2022-07-24 07:21 | disposition home or self-care (01) ==
LOC: HO.HMGCLDS 07:20
PROVIDERS: PCP Internal Medicine; Visit Provider Internal Medicine
DX: Z12.5 Encounter for screening for malignant neoplasm of prostate (principal); I10 Essential (primary) hypertension; E78.00 Pure hypercholesterolemia, unspecified; R35.1 Nocturia
CPT/HCPCS: 36415; 80053; 80061; 84153; 85025

== ENCOUNTER 2023-07-26 08:31 | Outpatient (AMB) | payer MEDICARE, SELFPAY ==
[2023-07-26 08:38] VITALS: BP 120/76; PULSE 102; BMI 22.7
--- NOTE | 2023-07-26 08:38 | MHC.OFFVIS ---
Intake Vital Signs 07/26/23 08:38 Height 6 ft Weight 167 lb 8.821 oz BMI 22.7 BP 120/76 Blood Pressure Location Lt brachial Position Sitting Pulse 102 H Intake Visit Reasons: 1 yr f/u Intake Note: 1 year follow-up with ekg feeling good Disciplinary Hearing Officer Required: No Allergies No Known Allergies Allergy (Verified 12/12/21 14:40) Medication List - Last Reconciled 07/26/23 by Kasi Pike MD apixaban (Eliquis) 5 mg PO BID lisinopril 5 mg PO DAILY metoprolol succinate ER 50 mg PO DAILY multivitamin 1 tab PO DAILY simvastatin 20 mg PO BEDTIME HPI HPI Comments History of Present Illness Details Gregory comes for follow-up. Patient said he has no new symptoms. Although he comes in and is in atrial flutter with rapid ventricular response. He was not aware of it. He denies any prolonged palpitations. Denies any recent change in his exercise capacity. No exertional chest pain or shortness of breath or fatigue. Denies any lightheadedness, syncope. Has been taking all his medications regularly. No bleeding issues or neurologic events. [facility] Medical History (Updated 07/26/23 @ 09:02 by Kasi Pike MD) Atrial flutter Paroxysmal atrial flutter Hard of hearing High cholesterol HTN (hypertension) Surgical History History of surgery Hx of colonoscopy Social History Are you a primary palliative care coordinator to a significant other at home: No Do you presently have visiting nurse or other home services: No Patient Tobacco Use Status: Former Tobacco user Quit Date: 2001 Tobacco use type: Cigarette Review of Systems Const Denies chills, Denies fatigue, Denies fever(s), Denies frequent falls, Denies weakness, Denies weight gain and Denies weight loss ENT Denies dizziness Card Denies chest pain, Denies leg edema, Denies lightheadedness, Denies palpitations, Denies dyspnea, Denies dyspnea on exertion, Denies orthopnea and Denies other (loss of consciousness) Resp Denies cough, Denies dyspnea and Denies dyspnea on exertion GI Denies hematochezia and Denies change in stool character Musc Denies abnormal gait, Denies muscle weakness, Denies numbness, Denies radiating pain into limb and Denies tingling Neuro Denies abnormal gait, Denies dizziness, Denies frequent falls, Denies numbness, Denies tingling and Denies weakness Endo Denies fatigue and Denies palpitations Physical Exam Vital Signs: Last Vital Signs Pulse 102 H 07/26/23 08:38 BP 120/76 07/26/23 08:38 BMI result Body Mass Index 22.7 Office Procedures EKG Details: EKG shows atrial flutter with 3 is to 1 conduction with LVH [id number], Complete Assessment & Plan Assessment & Plan (1) Atrial flutter: Code(s): I48.92 - Unspecified atrial flutter Plan: Recurrent atrial flutter with rapid ventricular response despite adequate medical therapy. Patient has been religiously taking his oral anticoagulant therapy. I thing require antiarrhythmic drug support to maintain rhythm. This was discussed with him. Will start him on Multaq 400 mg b.i.d. to help maintain rhythm in the long run. Continue metoprolol therapy. Simvastatin will be discontinued due to noted interaction with Multaq and switch to atorvastatin 10 or 20 mg. Once he is able to acquire the prescription, will schedule for synchronized cardioversion in near future. We discussed the procedure of synchronized cardioversion again. We discuss the benefits, alternatives, 2nd opinion. He understands agrees. He is not very enthusiastic about the whole process. But he understands the need to pursue rhythm control given his overall good health. Will request echocardiogram to assess for LV systolic function as well as biatrial chamber size. (2) HTN (hypertension): Code(s): I10 - Essential (primary) hypertension Plan: Hypertension which is overall well controlled. Advised to continue current medications importance of good blood pressure control was discussed. Target goal blood pressure less than 130/84. Low-salt diet was discussed advised to maintain activity level as tolerated. Will follow up in the clinic in 4 weeks time, sooner p.r.n.. Thank you for allowing me to partake in his care Medications: New dronedarone (Multaq) must administer with a meal/food 400 mg PO Q12H 60 tabs 2RF Coding Level of Care Code Est Pt Level 4 (09401) Diagnoses Atrial flutter I48.92 HTN (hypertension) I10 CPT Codes EKG - CPT: 65034-Efocrlqdyyohlndqr, Complete ([id number])
== END 2023-07-26 09:25 | disposition home or self-care (01) ==
PROVIDERS: Visit Provider Internal Medicine Cardiovascular Disease
DX: I48.92 Unspecified atrial flutter (principal); I10 Essential (primary) hypertension
CPT/HCPCS: 93010; 99214

== ENCOUNTER → 2023-07-26 08:31 | Outpatient (BNVA) | payer MEDICARE, SELFPAY | PROVIDERS: Visit Provider Internal Medicine Cardiovascular Disease | DX: I48.92 Unspecified atrial flutter (principal); I10 Essential (primary) hypertension | CPT/HCPCS: 93005; 99212 ==

== ENCOUNTER → 2023-09-14 07:41 | Outpatient (REF) | payer MEDICARE, SELFPAY ==
--- NOTE | 2023-09-14 07:44 | CA_ITS ---
Acquisition Time: 2023-09-14 08:47:08 Total Exercise Time: 00:02:00 Test Indications: ABN EKG, AFLUTTER Medications: SEE H Protocol: LEXISCAN Max HR: 148 BPM 107% of Pred: 138 BPM Max BP: 134/084 mmHG Max Work Load: 1.0 METS Pharmacological stress test with Lexiscan injection while sitting in chair, without anginal symptoms, without arrhythmias, with normotensive response to injection, without EKG changes. Aminophylline 75mg IVP given to reverse Lexiscan. Nuclear images pending. Test reviewed with Dr. Perez. PT took his morning meds at end of test. Referred By: Kasi Pike Overread By: Nai Ferrer
--- NOTE | 2023-09-14 07:44 | CA_ITS ---
Transthoracic Echocardiogram Patient (Last, First, Middle): Gregory Dior K Gender: Male Date of : 1940 Age: 83 Procedure Date: 09/14/2023 Procedure Type: Transthoracic Echocardiogram Location: OP Height: 182.88 cm Weight: 79.38 kg BSA: 2.01 m2 Heart Rate: bpm BP: 120 / 80 mmHg Welder/Fitter: DENISE/JEYSON Referring MD: Kasi Pike MD Symptoms: I48.92 - Unspecified atrial flutter Study Quality: Fair ECG Rhythm: Atrial flutter Conclusions: - The left ventricular systolic function is low normal. The visually estimated ejection fraction is between 50-55%. - There is mildly decreased right ventricular systolic function. - No obvious valvular pathology seen on this study. Findings Left Ventricle Normal left ventricular cavity size. There is normal left ventricular wall thickness. The left ventricular systolic function is low normal. The visually estimated ejection fraction is between 50-55%. There is no evidence of regional wall motion abnormalities. Diastolic function is indeterminate on the basis of available data. Right Ventricle Normal right ventricular cavity size. There is mildly decreased right ventricular systolic function. Atria The left atrium is mildly dilated. The right atrium is normal in size. Aortic Valve There is a normal trileaflet aortic valve. There is no aortic valve stenosis. There is trace (trivial) aortic valve regurgitation. Mitral Valve There is mild mitral annular calcification. There is trace mitral valve regurgitation. There is no mitral valve stenosis. Pulmonic Valve The pulmonic valve is likely normal. Tricuspid Valve Normal tricuspid valve structure. There is trace tricuspid valve regurgitation. Tricuspid regurgitation envelope is inadequate for calculation of right ventricular systolic pressure. Great Vessels The asc aorta is normal in size. Venous The inferior vena cava is normal in size and collapses greater than 50% with inspiration. Pericardium/Pleural There is no evidence of pericardial effusion. Prior Study Comparison No significant change compared to prior study dated: 07/02/2022. Recommendations, Care & Conclusions No obvious valvular pathology seen on this study. Measurements 2D Linear Measurements IVSd: 1.03 0.6-0.9/0.6-1.0 cm LVIDd: 4.38 3.9-5.3/4.2-5.9 cm LVIDd Index: 2.18 2.4-3.2/2.2-3.1 cm/m2 LVIDs: 3.13 2.0-3.6 cm LVPWd: 1.01 0.7-1.1 cm Ao Root: 3.40 2.1-3.5 cm LA Diam: 5.10 2.7-3.8/3.0-4.0 cm LAIDs Index: 2.54 1.5-2.3 cm/m2 LV Mass: 187.80 67-162/88-224 g LV Mass Index: 93.44 43-95/49-115 g/m2 LVOT Diam: 2.00 3.0+(-)1.3 cm 2D Systolic Function EF 4C: 52.80 >55% EF 2C: 55.50 >55% EF BiP: 54.80 >55% Mitral Valve MV Pk E: 0.96 MV Decel Time: 138.00 E'Lateral: 8.34 E'Medial: 9.06 E/E' Med: 10.60 E/E' Lat: 11.50 PHT: 40.00 MVA PHT: 5.50 Decel Tama: 6.94 Aortic Valve AoV Pk Reggie: 0.90 AoV Mn Reggie: 0.68 AoV VTI: 0.18 AoV Pk Grad: 3.00 Aov Mn Grad: 2.00 LUBNA Cont.VTI: 2.30 LVOT LVOT Pk Reggie: 0.70 LVOT Mn Reggie: 0.48 LVOT VTI: 0.13 LVOT Pk Grad: 2.00 LVOT Mn Grad: 1.00 LVOT Diam: 2.00 LVOT Area: 3.14 Diastolic Function MV Pk E: 0.96 E'Medial: 9.06 E/E' Med: 10.60 E' Laterial: 8.34 E/E' Lat: 11.50 Right Ventricle TAPSE (mm): 18.00 TVS' Reggie: 8.00 Tricuspid Valve TR Pk Reggie: 2.00 TR Pk Grad: 16.00 RA Press: 3.00 RVSP: 19.00 Great Vessels Aorta Ao Root-2D: 3.40 2.0-3.7 cm Ao Asc: 3.40 2.1-3.4 cm Pulmonary Valve PV Pk Reggie: 0.39 Peak PV Grad: 1.00 Updated in Other Vendor System with Status of Final Ceasar Muhammad MD electronically signed on 09/14/2023 9:54:21 AM with status of Final
== END ==
LOC: HO.CARD 07:41
PROVIDERS: PCP Internal Medicine; Visit Provider Internal Medicine Cardiovascular Disease
DX: I48.92 Unspecified atrial flutter (principal); I10 Essential (primary) hypertension
CPT/HCPCS: 78452; 93017; 93306; A9500; J0280; J2785

== ENCOUNTER → 2023-09-14 07:44 | Outpatient (BNV) | payer MEDICARE, SELFPAY | PROVIDERS: PCP Internal Medicine; Visit Provider Internal Medicine | DX: I48.92 Unspecified atrial flutter (principal) | CPT/HCPCS: 78452; 93016; 93018; 93306 ==

== ENCOUNTER 2024-11-02 14:08 | Outpatient (AMB) | payer MEDICARE, SELFPAY ==
--- NOTE | 2024-11-02 14:22 | MHC.OFFVIS ---
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 Currently not taking dronedarone therapy for unclear reasons. He does not know who stopped it. He comes in today and he was in atrial flutter with slightly rapid ventricular response. He was no symptoms of palpitations. Denies any lightheadedness, syncope. Denies any symptoms of orthopnea, PND, shortness of breath, fatigue. He has been taking his Eliquis regularly. [facility] Medical History (Updated 11/02/24 @ 14:47 by Kasi Pike MD) Paroxysmal atrial flutter Atrial flutter Hard of hearing High cholesterol HTN (hypertension) Surgical History History of surgery Hx of colonoscopy Social History Are you a primary healthcare analyst to a significant other at home: No Do you presently have visiting nurse or other home services: No Patient Tobacco Use Status: Former Tobacco user Tobacco use type: Cigarette Review of Systems Const Denies chills, Denies fatigue, Denies fever(s), Denies frequent falls, Denies weakness, Denies weight gain and Denies weight loss ENT Denies dizziness Card Denies chest pain, Denies leg edema, Denies lightheadedness, Denies palpitations, Denies dyspnea, Denies dyspnea on exertion, Denies orthopnea and Denies other (loss of consciousness) Resp Denies cough, Denies dyspnea and Denies dyspnea on exertion GI Denies hematochezia and Denies change in stool character Musc Denies abnormal gait, Denies muscle weakness, Denies numbness, Denies radiating pain into limb and Denies tingling Neuro Denies Abnormal speech present, Denies abnormal gait, Denies dizziness, Denies frequent falls, Denies numbness, Denies tingling and Denies weakness Endo Denies fatigue and Denies palpitations Physical Exam Vital Signs: Last Vital Signs Pulse 102 H 11/02/24 14:26 BP 124/76 11/02/24 14:26 BMI result Body Mass Index 23.0 Const General: cooperative, comfortable, no acute distress, alert, awake, Physically active and anxious Nutritional Appearance: thin Orientation/consciousness: patient oriented x3 Limitations: no limitations Neck Neck: Yes trachea midline, Yes supple and Yes no JVD Chest Chest palpation & inspection: normal inspection of the chest Resp Effort & Inspection: normal respiratory effort Auscultation: clear to auscultation bilaterally Cardio Jugular venous distension: no JVD Palpation: normal PMI Rate: tachycardic Rhythm: regular rhythm Heart sounds: S1 normal heart sound present, S2 normal heart sound present, no click, no gallops, no murmurs and no rubs Peripheral pulses: Peripheral pulses 2+ throughout GI Auscultation: normal bowel sounds Skin General skin exam: no rashes or lesions noted Neuro General: patient oriented x3 and no focal motor deficits Speech: No Abnormal speech present Extrem General: Yes no clubbing, cyanosis or edema Psych Appearance: grossly normal Office Procedures EKG Details: EKG shows atypical atrial flutter with 3 is to 1 conduction. [id number], Complete Assessment & Plan Assessment & Plan (1) Atrial flutter: Code(s): I48.92 - Unspecified atrial flutter Category: Medical Plan: Recurrent atrial flutter in this elderly gentleman most likely due to withdrawal of his antiarrhythmic drug for unclear reason. He is currently however not having any symptoms. Denies symptoms of palpitation. Denies any symptoms of cardiac decompensation with no symptoms of worsening shortness of breath or fatigue. He maintains activity at high level. At this point time although his rate is not well controlled. Will increase his metoprolol to 50 mg b.i.d.. Follow-up Holter monitor in 3 weeks' time. Also will follow-up echocardiogram in 3 weeks' time to assess for tachycardia mediated cardiomyopathy. Continue full oral anticoagulation, currently on Eliquis 5 mg b.i.d.. Management for now would be rate control given lack of symptoms in his age. He understands and agrees. Advised to call me with any worsening symptoms. Will follow up in the clinic in 6 weeks time, sooner p.r.n.. Thank you for allowing me to partake in his care Orders: Orders CA echo transthoracic complete 3 Weeks I48.92 - Unspecified atrial flutter ECG 3 day holter monitor 3 Weeks I48.92 - Unspecified atrial flutter Medications: Changed From metoprolol succinate ER Call for follow up appointment 50 mg PO DAILY 90 tabs 3RF I48.92 - Unspecified atrial flutter To metoprolol succinate ER Call for follow up appointment 50 mg PO BID 180 tabs 1RF I48.92 - Unspecified atrial flutter Coding Level of Care Code Est Pt Level 4 (91912) Complex EM visit Add On G2211 Diagnoses Atrial flutter I48.92 CPT Codes EKG - CPT: 37805-Zkidlyadmizmyktic, Complete ([id number])
[2024-11-02 14:26] VITALS: BP 124/76; PULSE 102; BMI 23.0
== END 2024-11-02 14:50 | disposition home or self-care (01) ==
PROVIDERS: PCP Internal Medicine; Visit Provider Internal Medicine Cardiovascular Disease
DX: I48.92 Unspecified atrial flutter (principal)
CPT/HCPCS: 93010; 99214; G2211

== ENCOUNTER → 2024-11-02 14:08 | Outpatient (BNVA) | payer MEDICARE, SELFPAY | PROVIDERS: PCP Internal Medicine; Visit Provider Internal Medicine Cardiovascular Disease | DX: I48.92 Unspecified atrial flutter (principal); R94.31 Abnormal electrocardiogram [ECG] [EKG]; I51.7 Cardiomegaly | CPT/HCPCS: 93005; 99212 ==

== ENCOUNTER → 2024-11-23 08:43 | Outpatient (REF) | payer MEDICARE, SELFPAY ==
--- NOTE | 2024-11-23 08:50 | CA_ITS ---
Transthoracic Echocardiogram Patient (Last, First, Middle): Gregory Dior K Gender: Male Date of : 1940 Age: 84 Procedure Date: 11/23/2024 Procedure Type: Transthoracic Echocardiogram Location: OP Height: 182.88 cm Weight: 76.66 kg BSA: 1.98 m2 Heart Rate: bpm BP: 124 / 76 mmHg Policy Writer Sales: ROSEMARY Referring MD: Kasi Pike MD Symptoms: I48.92 - Unspecified atrial flutter Study Quality: Adequate ECG Rhythm: Sinus Conclusions: - The calculated ejection fraction is 42% by biplane method. LVEF by 3D 45%. - No obvious valvular pathology seen on this study. Findings Left Ventricle Normal left ventricular cavity size. There is normal left ventricular wall thickness. The left ventricular systolic function is mild to moderately decreased. The calculated ejection fraction is 42% by biplane method. Diastolic function is indeterminate on the basis of available data. LVEF by 3D 45%. Right Ventricle Normal right ventricular cavity size. There is mildly decreased right ventricular systolic function. Atria The left atrium is moderately dilated. The right atrium is mildly dilated. Aortic Valve There is a normal trileaflet aortic valve. There is no aortic valve stenosis. There is no aortic valve regurgitation. Mitral Valve There is mild mitral annular calcification. There is trace mitral valve regurgitation. There is no mitral valve stenosis. Pulmonic Valve The pulmonic valve is likely normal. Tricuspid Valve There is trace tricuspid valve regurgitation. There is no evidence of pulmonary hypertension. Great Vessels The asc aorta is normal in size. Venous The inferior vena cava was not well visualized. Pericardium/Pleural There is no evidence of pericardial effusion. Prior Study Comparison Changes noted compared to prior study dated: 09/14/2023. LVEF lower than previously reported, but visually no major change. Recommendations, Care & Conclusions No obvious valvular pathology seen on this study. Measurements 2D Linear Measurements IVSd: 1.02 0.6-0.9/0.6-1.0 cm LVIDd: 4.67 3.9-5.3/4.2-5.9 cm LVIDd Index: 2.36 2.4-3.2/2.2-3.1 cm/m2 LVIDs: 3.62 2.0-3.6 cm LVPWd: 1.02 0.7-1.1 cm LA Diam: 4.50 2.7-3.8/3.0-4.0 cm LAIDs Index: 2.27 1.5-2.3 cm/m2 LV Mass: 208.27 67-162/88-224 g LV Mass Index: 105.19 43-95/49-115 g/m2 LVOT Diam: 2.00 3.0+(-)1.3 cm 2D Systolic Function EF 4C: 39.50 >55% EF 2C: 46.50 >55% EF BiP: 42.30 >55% Mitral Valve MV Pk E: 0.94 MV Decel Time: 175.00 E'Lateral: 7.62 E'Medial: 7.07 E/E' Med: 13.30 E/E' Lat: 12.40 PHT: 51.00 MVA PHT: 4.31 Decel Gallia: 5.38 Aortic Valve AoV Pk Reggie: 1.02 AoV Mn Reggie: 0.78 AoV VTI: 0.21 AoV Pk Grad: 4.00 Aov Mn Grad: 3.00 LUBNA Cont.VTI: 2.15 LVOT LVOT Pk Reggie: 0.76 LVOT Mn Reggie: 0.54 LVOT VTI: 0.15 LVOT Pk Grad: 2.00 LVOT Mn Grad: 1.00 LVOT Diam: 2.00 LVOT Area: 3.14 Diastolic Function MV Pk E: 0.94 E'Medial: 7.07 E/E' Med: 13.30 E' Laterial: 7.62 E/E' Lat: 12.40 Right Ventricle TAPSE (mm): 17.50 TVS' Reggie: 8.59 Tricuspid Valve TR Pk Reggie: 2.27 TR Pk Grad: 21.00 Great Vessels Aorta Sinus of Valsalva: 3.97 2.0-3.[address] [place]: 3.12 1.7-3.4 cm Ao Asc: 3.60 2.1-3.4 cm Updated in Other Vendor System with Status of Final Ceasar Muhammad MD electronically signed on 11/25/2024 9:53:13 AM with status of Final
== END ==
LOC: HO.CARD 08:43
PROVIDERS: PCP Internal Medicine; Visit Provider Internal Medicine Cardiovascular Disease
DX: I48.92 Unspecified atrial flutter (principal)
CPT/HCPCS: 93242; 93306

== ENCOUNTER → 2024-11-23 08:50 | Outpatient (BNV) | payer MEDICARE, SELFPAY | PROVIDERS: PCP Internal Medicine; Visit Provider Internal Medicine | DX: I48.91 Unspecified atrial fibrillation (principal) | CPT/HCPCS: 93244 ==

== ENCOUNTER 2024-12-14 12:23 | Outpatient (AMB) | payer MEDICARE, SELFPAY ==
--- NOTE | 2024-12-14 12:56 | MHC.OFFVIS ---
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 Patient has history of hypertension and paroxysmal a flutter. The patient has experienced multiple episodes of a flutter with RVR for which he underwent several Holter monitor assessment. In 2021, the patient had a successful cardioversion but had a recurrence back in 2022. He was prescribed Multaq at that time but the patient did not started due to high cost of the medication. The patient reports that he does not ever feel his AF flutter and over fall is feeling well. He mentions that during the time he wore his latest Holter monitor, he was under a lot of stress while getting for his who frequently fell requiring him to lift her off the ground. Patient is concerned about her being now in a fpc and is eager to bring her home as soon as possible. Patient otherwise is denying any cardiac symptoms such as shortness of breath, exertional chest pain, dizziness, fatigue, orthopnea, PND, leg edema, presyncope, or syncope. Patient confirms his compliance with his medications. [facility] Medical History Paroxysmal atrial flutter Atrial flutter Hard of hearing High cholesterol HTN (hypertension) Surgical History History of surgery Hx of colonoscopy Social History Are you a primary furnace caretaker to a significant other at home: No Do you presently have visiting nurse or other home services: No Patient Tobacco Use Status: Former Tobacco user Tobacco use type: Cigarette Review of Systems Const Denies chills, Denies fatigue, Denies fever(s), Denies frequent falls, Denies weakness, Denies weight gain and Denies weight loss ENT Denies dizziness Card Denies chest pain, Denies leg edema, Denies lightheadedness, Denies palpitations, Denies dyspnea and Denies dyspnea on exertion Resp Denies cough, Denies dyspnea and Denies dyspnea on exertion GI Denies hematochezia Musc Denies abnormal gait, Denies muscle weakness, Denies numbness, Denies radiating pain into limb and Denies tingling Neuro Denies abnormal gait, Denies dizziness, Denies frequent falls, Denies numbness, Denies tingling and Denies weakness Endo Denies fatigue and Denies palpitations Physical Exam Vital Signs: Last Vital Signs Pulse 93 12/14/24 12:57 BP 140/82 H 12/14/24 12:57 BMI result Body Mass Index 22.5 Const General: cooperative, healthy appearing, comfortable and no acute distress Orientation/consciousness: patient oriented x3 HEENT Head: Yes normal to inspection Neck Neck: Yes normal visual inspection, Yes trachea midline and Yes supple Chest Chest palpation & inspection: normal inspection of the chest Resp Effort & Inspection: normal respiratory effort Auscultation: clear to auscultation bilaterally, no crackles, no rales, no rhonchi and no wheezes Cardio Jugular venous distension: no JVD Palpation: normal PMI Rate: regular rate Rhythm: regular rhythm Heart sounds: S1 normal heart sound present, S2 normal heart sound present, no click, no gallops, no murmurs and no rubs Peripheral pulses: Peripheral pulses 2+ throughout GI Inspection: Yes normal to inspection Palpation (GI): Soft to palpation Auscultation: normal bowel sounds Skin General skin exam: no rashes or lesions noted Neuro General: patient oriented x3 Extrem General: Yes normal to inspection, No no pedal edema and No calf tenderness Psych Appearance: grossly normal Mental Status: mental status grossly normal Speech and movement: Normal speech and movement present Office Procedures EKG Details: EKG today shows atrial flutter with LVH, rate 93 beats per minute. [id number], Complete Assessment & Plan Assessment & Plan (1) Atrial flutter: Code(s): I48.92 - Unspecified atrial flutter Category: Medical Plan: 11/23/2024-patient wore his Holter monitor for 3 days that showed atrial fibrillation with the average heart rate of 95 beats per minute with borderline rate control. 11/23/2024-echo study showed a reduced ejection fraction at 42% by biplane method and at 45% by 3D. Today's EKG showed atrial flutter with rate 93 beats per minute. Continue Eliquis for full anticoagulation therapy and metoprolol for rate control approach. No reported signs of bleeding or falls. We will monitor labs periodically. We will attempt to start the patient on Multaq twice daily and work with the insurance for prior authorization. Once the patient is able to start on Multaq, we will schedule him for cardioversion. The procedure, including its indications, risks, and potential benefits worse thoroughly discussed with the patient. The patient isn't interested in proceeding with cardioversion but will call back to schedule once he is available as he states that he needs to prioritize about his . (2) HTN (hypertension): Code(s): I10 - Essential (primary) hypertension Category: Medical Plan: Blood pressure today is a little elevated. Does not check his blood pressures at home and was advised to monitor at home and keep a log of it. I will increase his lisinopril to 10 mg daily. Ideally, blood pressure goal less than 130/80. Advised heart healthy diet, regular exercise as tolerated, and management of his vascular risk factors. Patient will call the office about his availability for the cardioversion. We will follow-up after that in the office. In the interim, patient will contact us for any concerns or change in symptoms. This note was generated using voice recognition software. While every effort has been made to ensure accuracy and proper campus chaplain, there may be occasional errors that could affect the content or meaning of the described symptoms. Orders: Orders Cardioversion 1 Month I48.92 - Unspecified atrial flutter AMB EKG-In Office Today I48.92 - Unspecified atrial flutter Medications: New lisinopril 10 mg PO DAILY 90 tabs 3RF dronedarone must administer with a meal/food 400 mg PO BID 60 tabs 3RF Discontinued lisinopril Discontinued Reason: Doctor's Order 5 mg PO DAILY 180 tabs 3RF Coding Level of Care Code Est Pt Level 4 (24785) Complex EM visit Add On G2211 Diagnoses Atrial flutter I48.92 HTN (hypertension) I10 CPT Codes EKG - CPT: 77259-Uxswalrxilunpspjo, Complete ([id number]) Time Spent (min) 32 Comment Time spent in reviewing the chart, test results, assessment, counseling and documentation.
[2024-12-14 12:57] VITALS: BP 140/82; PULSE 93; BMI 22.5
== END 2024-12-14 13:33 | disposition home or self-care (01) ==
LOC: HO.HCS 12:24
PROVIDERS: PCP Internal Medicine
DX: I48.92 Unspecified atrial flutter (principal); I10 Essential (primary) hypertension
CPT/HCPCS: 93010; 99214; G2211

== ENCOUNTER → 2024-12-14 12:23 | Outpatient (BNVA) | payer MEDICARE, SELFPAY | PROVIDERS: PCP Internal Medicine | DX: I10 Essential (primary) hypertension (principal); I48.92 Unspecified atrial flutter | CPT/HCPCS: 93005; 99212 ==

== ENCOUNTER 2024-12-27 08:13 | Day surgery (SDC) | payer MEDICARE, SELFPAY ==
--- NOTE | 2024-12-27 08:15 | MHC.SHP ---
Pre-Procedural Eval Section A - 24 Hr Update-Section A only Date of Service: 12/27/24 The patient is an INPATIENT: No Changes since office visit: Yes Changes in Medication and Yes Patient answered all questions; No Cold of Flu in the past 2 weeks and No New Medical Problems The patient has been examined within 24 hours of the surgical procedure. The History & Physical has been completed within 30 days and I have reviewed it.: No Section B - Complete if H&P > 30 days Chief Complaint: Unspecified atrial flutter Allergies: Allergies Allergy/AdvReac Type Severity Reaction Status Date / Time No Known Allergies Allergy Verified 12/12/21 14:40 Plan I have reviewed the history and physical and performed a pertinent physical examination on my patient. No changes have occurred unless specified. Time Spent With Patient Time: Total time managing care of this patient today ____ minutes.
[2024-12-27 09:12] VITALS: BP 125/72; PULSE 79; RESP 15; TEMP 36.6; O2SAT 97; BMI 22.5
--- NOTE | 2024-12-27 09:29 | P.CONAN_ITS ---
HPI - Anesthesia Eval Consult details Narrative: 84 yo male patient for Cardioversion PMFSH Active Problems Active Problems: All Active Problems Atrial flutter (Acute)- asymptomatic HTN (hypertension) (Acute) Past Medical History Medical History History of cardioversion Paroxysmal atrial flutter Hard of hearing Atrial flutter High cholesterol HTN (hypertension) Family History Family history of problems with anesthesia: No Surgical History Surgical History History of surgery Hx of colonoscopy History of Problems with Anesthesia: No Social History Social History Are you a primary home care physical therapist to a significant other at home: No Do you presently have visiting nurse or other home services: No Patient Tobacco Use Status: Former Tobacco user Tobacco use type: Cigarette Use of substances other than those prescribed or required for medical reasons: No Are you DNR?: No Advance Directives: No Advance Directives Information Provided: Yes Meds Allergies Allergy/AdvReac Type Severity Reaction Status Date / Time No Known Allergies Allergy Verified 12/27/24 09:30 Exam Height,Weight and Vital Signs: Height 5 ft 11 in Weight 73.3 kg Last Vital Signs Temp 97.8 F 12/27/24 09:12 Pulse 79 12/27/24 09:12 Resp 15 12/27/24 09:12 BP 125/72 12/27/24 09:12 Pulse Ox 97 12/27/24 09:12 O2 Del Method Room Air 12/27/24 09:12 Airway Mallampati Class: II TM Dist: >3cm Neck ROM: Full Partial: Upper and Lower Loose/Missing/Broken Teeth: Yes (Partial plates top and bottom. Denies broken or loose teeth) Heart: Irregular Lungs: CTAB Assessment and Plan Assessment Anesthesia Assessment: Anesthesia Plan Discussed and Chart Reviewed Final Anesthetic Review Family History of Problems with Anesthesia: No History of Problems with Anesthesia: No NPO: Yes ASA Class: III Final Preanesthetic Review: No Changes in Pt Med Stat, Meds/Allgs Chart Reviewed, Consent Obtained/Reviewed and Anes Risks/Benef Reviewed Patient Risk: Intermediate Procedure Risk: Intermediate Assessment/Block/Sedation in : Assess/Block/Sedation- Anesthetic Plan Anesthetic Plan: GA Disposition: Standard PACU
[2024-12-27] MEDS: Lactated Ringers 1,000 ML 50 ML IVCONT (09:34)
[2024-12-27 10:12] VITALS: BP 94/56; PULSE 61; RESP 17; TEMP 36.9; O2SAT 100
--- NOTE | 2024-12-27 10:15 | ECG_ITS ---
Test Reason : post op Blood Pressure : */* mmHG Vent. Rate : 62 BPM Atrial Rate : 62 BPM P-R Int : 186 ms QRS Dur : 82 ms QT Int : 430 ms P-R-T Axes : 88 24 62 degrees QTcB Int : 436 ms Sinus rhythm with Premature atrial complexes Nonspecific ST abnormality Abnormal ECG When compared with ECG of 17-Dec-2021 11:19, Premature atrial complexes are now Present Referred By: Kasi Pike Electronically Signed By: KASI PIKE MD
--- NOTE | 2024-12-27 10:15 | HO.CARDIVERS ---
Cardioversion Procedure Note Cardioversion Date of Procedure: 12/27/2024 Ordering Provider: Alvin Pike Performing Provider: Alvin Pike Indication for Procedure: Persistent symptomatic atrial flutter Pre-Op Diagnosis: Same Post-Op Diagnosis: Normal sinus rhythm Performed with Transesophageal Echo: No History: See my office note Consent: Verbal and Written consent was obtained from the patient before starting and after confirming oral anticoagulation as well as antiarrhythmic use. The patient was made aware of the risk of synchronized cardioversion including alternatives and benefits Procedure: After consent obtained, cardioversion pads were attached in anteroposterior configuration and the patient was sedated by the anesthesia team. Once adequate sedation achieved, 200 joules of biphasic synchronized energy in anteroposterior configuration Complications: None Impression: Successful conversion to sinus rhythm Recommendations: 1. 12 lead EKG 2. Continue oral anticoagulation and antiarrhythmic use 3. Follow up in the clinic in 4 weeks
[2024-12-27 10:17] VITALS: BP 90/53; PULSE 67; RESP 18; O2SAT 100
[2024-12-27 10:22] VITALS: BP 89/56; PULSE 61; RESP 18; O2SAT 100
[2024-12-27 10:27] VITALS: BP 93/51; PULSE 56; RESP 18; O2SAT 95
[2024-12-27 10:42] VITALS: BP 111/66; PULSE 64; RESP 18; TEMP 36.2; O2SAT 98
== END 2024-12-27 11:12 | disposition home or self-care (01) ==
PROVIDERS: PCP Internal Medicine; Visit Provider Internal Medicine Cardiovascular Disease
PROC: 5A2204Z Restoration of Cardiac Rhythm, Single (ICD-10-PCS; principal; 2024-12-27 10:00)
DX: I48.92 Unspecified atrial flutter (principal); Z79.01 Long term (current) use of anticoagulants; I10 Essential (primary) hypertension; Z79.899 Other long term (current) drug therapy
CPT/HCPCS: 92960; 93005; J2704

== ENCOUNTER → 2024-12-27 08:13 | Outpatient (BNV) | payer MEDICARE, SELFPAY | PROVIDERS: PCP Internal Medicine; Visit Provider Internal Medicine Cardiovascular Disease | DX: I48.92 Unspecified atrial flutter (principal); I49.1 Atrial premature depolarization | CPT/HCPCS: 92960; 93010 ==

== ENCOUNTER 2025-01-22 12:32 | Outpatient (AMB) | payer MEDICARE, SELFPAY ==
--- NOTE | 2025-01-22 12:59 | MHC.PC.OV ---
Vital Signs 01/22/25 13:06 01/22/25 13:27 Height 5 ft 11 in Weight 74.843 kg BMI 23.0 BP 150/72 H 164/68 H Respiration 18 Pulse 57 Pulse Source Pulse Oximeter Temp 97.6 F Temp Source Temporal Artery Scan Pulse Oximetry (%) 98 Oxygen Delivery Method Room Air Intake Visit Reasons: Discharge F/U Critical Care Physician Required: No Accompanied by: Self / Same As Patient Allergies No Known Allergies Allergy (Verified 01/22/25 13:04) Medication List - Last Reconciled 01/22/25 by RUIZ Curry apixaban (Eliquis) 5 mg PO BID dronedarone 400 mg PO BID lisinopril 20 mg PO DAILY metoprolol succinate ER 50 mg PO BID multivitamin 1 tab PO DAILY simvastatin 20 mg PO BEDTIME Tobacco use date assessed: 01/22/25 Fall risk assessment: No Falls in past year Last assessed Fall Risk: 01/22/25 Dental Screening Dental Screen Date: 01/22/25 Did you have a dental visit in the last 12 months?: Yes Did you have a dental problem in the last 6 months where you did not have access to dental care?: No Was dental information given to patient?: Patient has dentist HPI HPI Comments History of Present Illness Details 84 year old male with history of paroxysmal atrial flutter, hld, htn presents to the office for routine follow up and follow up s/p cardioversion 12/27. The patient underwent synchronized cardioversion with Dr. Pike with successful conversion to normal sinus rhythm. He has remained on eliquis 5mg BID as well as the Multaq that was started prior to procedure. He denies any symptoms of sob, palpitations, lightheadedness, chest pain. He states he is never symptomatic when he is afib however. His blood pressure is elevated today at 150/72 and 164/68 on recheck manually. He reports compliance with all meds. He has no concerns today. [facility] Medical History (Updated 01/22/25 @ 13:13 by RUIZ Curry) History of cardioversion Paroxysmal atrial flutter Hard of hearing Atrial flutter High cholesterol HTN (hypertension) Surgical History History of surgery Hx of colonoscopy (~02/22/15) Family History (Updated 01/22/25 @ 13:10 by SLY Rubio) Father No problems noted. Mother No problems noted. Social History (Updated 01/22/25 @ 13:11 by SLY Rubio) Housing: House Are you a primary career guidance counselor to a significant other at home: No Do you presently have visiting nurse or other home services: No Alcohol intake: current Alcohol intake frequency: holidays/special occasions only Patient Tobacco Use Status: Former Tobacco user Tobacco use type: Cigarette service: Yes ([employer]) Current occupational status: retired Cognitive needs: No Hearing needs: No Vision needs: Yes (Reading glasses) Questionnaire PHQ-9 Over the last 2 weeks, how often have you been bothered by any of the following problems? 1. Little interest or pleasure in doing things: not at all 2. Feeling down, depressed, or hopeless: not at all 3. Trouble falling or staying asleep, or sleeping too much: not at all 4. Feeling tired or having little energy: not at all 5. Poor appetite or overeating: not at all 6. Feeling bad about yourself - or that you are a failure or have let yourself or your family down: not at all 7. Trouble concentrating on things, such as reading the newspaper or watching television: not at all 8. Moving or speaking so slowly that other people could have noticed. Or the opposite - being so fidgety or restless that you have been moving around a lot more than usual: not at all 9. Thoughts that you would be better off or of hurting yourself in some way: not at all Total score: 0 Source: Developed by Drs. Sohan Porter, Elle Pompa, Yong Elizondo and colleagues, with an educational renetta from [employer]. Thrive Questionnaire Date Thrive assessed: 01/22/25 I am a: Patient What is your living situation today?: I have a steady place to live Within the past 12 months, did the food you bought not last and you didn't have the money to get more?: Never true Within the past 12 months, did you worry whether your food would run out before you got money to buy more?: Never true Do you have trouble paying for medicines?: No Do you have trouble getting transportation to medical appointments?: No Do you have trouble paying your heating and electricity bill?: No Do you have trouble taking care of your child, family member or friend?: No Do you have trouble with day-to-day activities such as bathing, preparing meals, shopping, managing finances, etc.?: No Are you currently unemployed and looking for a job?: No Are you interested in more education?: No Please select the resources that you would like help with: None THRIVE Score: 0 AUDIT C Alcohol Use Questionnaire (AUDIT-C) 1. How often do you have a drink containing alcohol?: Monthly or less Total Score: 1 ROSY-7 AMB Questionnaire ROSY-7 Date ROSY - 7 assessed: 01/22/25 Feeling nervous, anxious, or on edge: 0 = Not at all Not being able to stop or control worryin = Not at all Worrying too much about different things: 0 = Not at all Trouble relaxin = Not at all Being so restless that it is hard to sit still: 0 = Not at all Becoming easily annoyed or irritable: 0 = Not at all Feeling afraid as if something awful might happen: 0 = Not at all Total ROSY-7 score (0-4 normal; 5-9 mild; 10-14 moderate; 15-21 severe): 0 Source: Developed by Drs. Sohan Porter, Elle Pompa, Yong Elizondo and colleagues, with an educational renetta from [employer]. Review of Systems Const Details: General: No fevers, malaise, unintentional weight loss HEENT: No blurred vision Cardiovascular: No chest pain, palpitations, or leg edema Respiratory: No shortness of breath, wheezing, cough Neuro: No headaches, weakness, paresthesias Skin: No rashes or lesions Physical exam (Primary Care) Vital Signs: Last Vital Signs Temp 97.6 F 01/22/25 13:06 Pulse 57 01/22/25 13:06 Resp 18 01/22/25 13:06 BP 150/72 H 01/22/25 13:06 Pulse Ox 98 01/22/25 13:06 Oxygen Delivery Method Room Air 01/22/25 13:06 BMI result Body Mass Index 23.0 Tobacco/Smoking Status: Tobacco use Status Tobacco use date assessed 01/22/25 01/22/25 13:04 Patient Tobacco Use Status Former Tobacco user 01/22/25 13:11 Tobacco use type Cigarette 01/22/25 13:11 PHQ-9: PHQ-9 Score PHQ-9: Total score 0 01/22/25 13:16 Thrive Assessment: Date of Thrive Assessment Date Thrive assessed 01/22/25 01/22/25 13:04 Const Other: Constitutional - Awake and Alert, No apparent distress Eyes - PERRL Cardiovascular - S1S2, RRR, No edema Respiratory - Normal lung expansion, Normal respiratory effort, No respiratory distress, CTA bilaterally Extremities - no calf tenderness bilaterally, no swelling Skin - Warm/Dry Neurological - Alert & oriented x3 Coding Level of Care Code New Pt Level 4 (83680) Complex EM visit Add On G2211 Diagnoses Atrial flutter I48.92 HTN (hypertension) I10 High cholesterol E78.00 Assessment & Plan Assessment & Plan (1) Atrial flutter: Code(s): I48.92 - Unspecified atrial flutter Category: Medical Plan: cardioversion 12/2024, stable. In NSR with normal rate. Continue eliquis for anticoagulation and Multaq for rhythm control. Continue metoprolol for rate control. Follow up with cardiology as scheduled on 01/24. (2) HTN (hypertension): Code(s): I10 - Essential (primary) hypertension Category: Medical Plan: Uncontrolled today despite manual recheck, possibly related to successful cardioversion. Lisinopril increased to 20mg daily. Continue metoprolol 50mg ER BID. Low sodium diet. Will check BMP to evaluate renal function and electrolyte levels. Will have BP rechecked at appt Wednesday (3) High cholesterol: Code(s): E78.00 - Pure hypercholesterolemia, unspecified Category: Medical Plan: Lipid profile ordered. Continue simvastatin 20mg nightly, dose to be adjusted pending results. Follow low fat diet. Plan Follow up in 6 months. Labs to be completed today as ordered. Follow up with cardiology on Wednesday. Medications: New lisinopril 20 mg PO DAILY 90 tabs 1RF Discontinued lisinopril Discontinued Reason: Doctor's Order 10 mg PO DAILY 90 tabs 3RF
[2025-01-22 13:06] VITALS: BP 150/72; PULSE 57; RESP 18; TEMP 36.4; O2SAT 98; BMI 23.0
[2025-01-22 13:27] VITALS: BP 164/68
== END 2025-01-22 13:29 | disposition home or self-care (01) ==
LOC: HO.HMCHD 12:32
PROVIDERS: PCP Internal Medicine; Visit Provider Physician Assistant
DX: I48.92 Unspecified atrial flutter (principal); I10 Essential (primary) hypertension; E78.00 Pure hypercholesterolemia, unspecified

== ENCOUNTER → 2025-01-22 12:32 | Outpatient (BNVA) | payer MEDICARE, SELFPAY | PROVIDERS: PCP Internal Medicine; Visit Provider Physician Assistant | DX: I48.92 Unspecified atrial flutter (principal); I10 Essential (primary) hypertension; E78.00 Pure hypercholesterolemia, unspecified; Z79.01 Long term (current) use of anticoagulants; Z79.899 Other long term (current) drug therapy | CPT/HCPCS: 96127; 99202 ==

== ENCOUNTER 2025-01-24 12:34 | Outpatient (AMB) | payer MEDICARE, SELFPAY ==
[2025-01-24 12:41] VITALS: BP 118/70; PULSE 50; BMI 22.8
--- NOTE | 2025-01-24 12:41 | MHC.OFFVIS ---
Vital Signs 01/24/25 12:41 Height 5 ft 11 in Weight 163 lb 2.273 oz BMI 22.8 BP 118/70 Blood Pressure Location Lt brachial Position Sitting Pulse 50 Intake Visit Reasons: follow up s/p cardioversion Intake Note: Follow-up post cardioversion with ekg feeling good Manager Retail Required: No Allergies No Known Allergies Allergy (Verified 01/22/25 13:04) Medication List - Last Reconciled 01/24/25 by Baltazar Sexton NP apixaban (Eliquis) 5 mg PO BID dronedarone 400 mg PO BID lisinopril 20 mg PO DAILY metoprolol succinate ER 50 mg PO BID multivitamin 1 tab PO DAILY simvastatin 20 mg PO BEDTIME HPI Comments Details: This is an 84-year-old male patient who comes in for a follow-up visit. Patient with a medical history of hypertension and paroxysmal a flutter. Patient has experienced multiple episodes of a flutter with RVR for which he has undergone several Holter monitor studies. Back in 2021, patient underwent a successful cardioversion but experienced recurrence of a flutter in 2022. At that time Multaq was prescribed however the patient never initiated this due to its cost. At his last visit, patient was still noted to be in atrial flutter and was restarted on Multaq with the plans of another cardioversion. He is now status post successful cardioversion performed by Dr. Pike on 12/27/2024. The patient reports that he has never experienced any symptoms related to his atrial flutter and continues to be feeling well. He denies any exertional chest pain, shortness of breath, palpitations, dizziness, orthopnea, PND, leg edema, presyncope, or syncope. Patient expresses his emotional stress related to his who is currently in a [facility] is in distress positioning to hospice care in the next couple of weeks. Despite this, patient affirms that he remains compliant with all his medications. [facility] Medical History History of cardioversion Paroxysmal atrial flutter Hard of hearing Atrial flutter High cholesterol HTN (hypertension) Surgical History History of surgery Hx of colonoscopy (~02/22/15) Family History Father No problems noted. Mother No problems noted. Social History Housing: House Are you a primary patient care technician instructor to a significant other at home: No Do you presently have visiting nurse or other home services: No Alcohol intake: current Alcohol intake frequency: holidays/special occasions only Patient Tobacco Use Status: Former Tobacco user Tobacco use type: Cigarette service: Yes ([employer]) Current occupational status: retired Cognitive needs: No Hearing needs: No Vision needs: Yes (Reading glasses) Review of Systems Const Denies chills, Denies fatigue, Denies fever(s), Denies frequent falls, Denies weakness, Denies weight gain and Denies weight loss ENT Denies dizziness Card Denies chest pain, Denies leg edema, Denies lightheadedness, Denies palpitations, Denies dyspnea, Denies dyspnea on exertion, Denies orthopnea and Denies other (loss of consciousness) Resp Denies cough, Denies dyspnea and Denies dyspnea on exertion GI Denies hematochezia and Denies change in stool character Musc Denies abnormal gait, Denies muscle weakness, Denies numbness, Denies radiating pain into limb and Denies tingling Neuro Denies abnormal gait, Denies dizziness, Denies frequent falls, Denies numbness, Denies tingling and Denies weakness Endo Denies fatigue and Denies palpitations Physical Exam Vital Signs: Last Vital Signs Pulse 50 01/24/25 12:41 BP 118/70 01/24/25 12:41 BMI result Body Mass Index 22.8 Const General: cooperative, healthy appearing, comfortable and no acute distress Orientation/consciousness: patient oriented x3 HEENT Head: Yes normal to inspection Neck Neck: Yes normal visual inspection, Yes trachea midline and Yes supple Chest Chest palpation & inspection: normal inspection of the chest Resp Effort & Inspection: normal respiratory effort Auscultation: clear to auscultation bilaterally, no crackles, no rales, no rhonchi and no wheezes Cardio Jugular venous distension: no JVD Palpation: normal PMI Rate: bradycardic Rhythm: regular rhythm Heart sounds: S1 normal heart sound present, S2 normal heart sound present, no click, no gallops, no murmurs and no rubs Peripheral pulses: Peripheral pulses 2+ throughout GI Inspection: Yes normal to inspection Palpation (GI): Soft to palpation Auscultation: normal bowel sounds Skin General skin exam: no rashes or lesions noted Neuro General: patient oriented x3 Extrem General: Yes normal to inspection, No no pedal edema and No calf tenderness Psych Appearance: grossly normal Mental Status: mental status grossly normal Speech and movement: Normal speech and movement present Office Procedures EKG Details: EKG today showed sinus bradycardia, rate 51 beats per minute, minimal voltage criteria for LVH, [place], [place] [id number], Complete Assessment & Plan Assessment & Plan (1) History of cardioversion: Code(s): Z92.89 - Personal history of other medical treatment Plan: Successful conversion to sinus rhythm on 12/27/[address] Pike. 11/23/2024-echo study showed reduced ejection fraction at 42% by biplane method and 45% at 3D. We will update the echo in 6 months. EKG today showed sinus bradycardia. Patient is clinically stable. Continue Eliquis for full anticoagulation therapy. No reported signs of bleeding. Continue Multaq for rhythm control approach. Continue metoprolol for rate control approach with the caution due to bradycardia. Ablation was discussed as a long-term rhythm control up shown however patient is not interested at this time preferring to continue with medical management. He understands that if recurrence occurs, catheter ablation remains a viable option and patient is open to considering it in future. We will monitor labs periodically. (2) Atrial flutter: Code(s): I48.92 - Unspecified atrial flutter Category: Medical Plan: As above. (3) HTN (hypertension): Code(s): I10 - Essential (primary) hypertension Category: Medical Plan: Blood pressure today is well-controlled. Continue current regimen. Advised monitoring blood pressures at home with a goal of less than 130/80. Advised heart healthy diet, regular exercise, med compliance, and emphasized on stress medication strategies. We will follow up in 6 months. In the interim, patient will call the office with any concerns or change in symptoms. This note was generated using voice recognition software. While every effort has been made to ensure accuracy and proper dining car conductor, there may be occasional errors that could affect the content or meaning of the described symptoms. Orders: Orders ECG 3 day holter monitor Today I48.92 - Unspecified atrial flutter CA echo transthoracic complete 5 Months I48.92 - Unspecified atrial flutter AMB EKG-In Office Today I48.92 - Unspecified atrial flutter Coding Level of Care Code Est Pt Level 4 (90621) Complex EM visit Add On G2211 Diagnoses History of cardioversion Z92.89 Atrial flutter I48.92 HTN (hypertension) I10 CPT Codes EKG - CPT: 70319-[id number], Complete ([id number]) Time Spent (min) 32 Comment Time spent in reviewing the chart, test results, assessment, counseling and documentation.
== END 2025-01-24 13:21 | disposition home or self-care (01) ==
LOC: HO.HCS 12:35
PROVIDERS: PCP Internal Medicine
DX: Z92.89 Personal history of other medical treatment (principal); I48.92 Unspecified atrial flutter; I10 Essential (primary) hypertension
CPT/HCPCS: 93010; 99214; G2211

== ENCOUNTER → 2025-01-24 12:34 | Outpatient (BNVA) | payer MEDICARE, SELFPAY | PROVIDERS: PCP Internal Medicine | DX: I48.92 Unspecified atrial flutter (principal); I10 Essential (primary) hypertension; Z92.89 Personal history of other medical treatment; R00.1 Bradycardia, unspecified | CPT/HCPCS: 93005; 99212 ==

== ENCOUNTER 2025-01-29 13:06 | Outpatient (REF) | payer MEDICARE, SELFPAY ==
[2025-01-29 16:07] LABS: MANUAL DIFF FLAG NO
[2025-01-29 16:15] LABS: Basophils Percent Auto 0.6 % (0-2); Eosinophils Absolute Auto 0.3 X10*3/uL (0.0-0.4); Eosinophils Percent Auto 5.2 % (0-4); Hematocrit 41.2 % (42.0-52.0); Hemoglobin 13.2 g/dl (14.0-18.0); Imm Gran Abs Auto 0.01 X10*3/uL (0.00-0.03); Imm Gran Pct Auto 0.2 % (0.0-0.4); Lymphocytes Absolute Auto 1.3 X10*3/uL (1.2-4.9); Lymphocytes Percent Auto 19.1 % (20-40); Mean Corpuscular Hemoglobin 30.4 pg (27.0-33.0); Mean Corpuscular Volume 94.9 fL (80.0-98.0); Mean Platelet Volume 9.8 fL (9.4-12.4); Monocytes Absolute Auto 0.7 X10*3/uL (0.1-1.2); Monocytes Percent Auto 11.3 % (2-11); Neutrophils Absolute Auto 4.2 x10*3/uL (2.0-8.3); Neutrophils Percent Auto 63.6 % (45-73); Platelet Count 182 X10*3/uL (160-400); Red Blood Count 4.34 X10*6/uL (4.60-5.80); Red Cell Distribution Width 13.7 % (11.0-16.0); White Blood Count 6.5 X10*3/uL (4.8-10.8)
[2025-01-29 16:24] LABS: Estimated Average Glucose 117 mg/dL; Hemoglobin A1C 134.2925 umol/L; Hemoglobin A1c % 5.7 % (<6.0); Total Hemoglobin (HGBA1C) 3494.4855 umol/L
[2025-01-29 16:56] LABS: Anion Gap 13 (12-20); Blood Urea Nitrogen 21 mg/dL (9-16); Calcium 9.3 mg/dL (8.4-10.2); Carbon Dioxide 26 mmol/L (22-29); Chloride 105 mmol/L (96-108); Estimated Glomerular Filt Rate > 60; Glucose Random 84 mg/dL (60-115); Potassium 4.3 mmol/L (3.3-5.1); Sodium 140 mmol/L (135-145)
[2025-01-29 17:01] LABS: TSH reflex Free T4 2.53 uIU/mL (0.32-4.0)
[2025-01-29 17:05] LABS: Prostate Specific Antigen 0.68 ng/mL (<0.05-4.0)
== END 2025-01-29 13:07 | disposition home or self-care (01) ==
LOC: HO.HMGCLDS 13:06
PROVIDERS: PCP Internal Medicine; Visit Provider Physician Assistant
DX: E78.00 Pure hypercholesterolemia, unspecified (principal); I48.92 Unspecified atrial flutter; I10 Essential (primary) hypertension; Z79.01 Long term (current) use of anticoagulants; Z12.5 Encounter for screening for malignant neoplasm of prostate; Z13.1 Encounter for screening for diabetes mellitus
CPT/HCPCS: 36415; 80048; 83036; 84153; 84443; 85025

== ENCOUNTER → 2025-06-05 08:30 | Outpatient (REF) | payer MEDICARE, SELFPAY ==
--- NOTE | 2025-06-05 08:33 | HM_ITS ---
* Total monitoring time 3 days. * Underlying rhythm is sinus with an average rate of 60/Min. * Rare supraventricular ectopy. * Rare ventricular ectopy. * No significant pauses or high-grade AV blocks. * No patient markers or diary events. MTDD
--- NOTE | 2025-06-05 08:33 | CA_ITS ---
Transthoracic Echocardiogram Patient (Last, First, Middle): Gregory Dior K Gender: M Date of : 1940 Age: 85 Procedure Date: 06/05/2025 Procedure Type: Transthoracic Echocardiogram Location: OP Height: 180.34 cm Weight: 73.94 kg BSA: 1.93 m2 Heart Rate: 57 bpm BP: 118 / 72 mmHg Cat Swamper: SB Referring MD: Baltazar Sexton NP Symptoms: I48.92 - Unspecified atrial flutter Study Quality: Adequate ECG Rhythm: Sinus bradycardia Conclusions: - The left ventricular systolic function is mildly decreased. The visually estimated ejection fraction is between 45-50%. - No obvious valvular pathology seen on this study. Findings Left Ventricle Normal left ventricular cavity size. There is normal left ventricular wall thickness. The left ventricular systolic function is mildly decreased. The visually estimated ejection fraction is between 45-50%. Evidence suggests grade II (moderate) diastolic dysfunction. LV peak GLS -14%, reduced. Right Ventricle Normal right ventricular cavity size and systolic function. Atria The left atrium is moderately dilated. The right atrium is mildly dilated. Aortic Valve There is a normal trileaflet aortic valve. There is no aortic valve stenosis. There is trace (trivial) aortic valve regurgitation. Mitral Valve There is mild mitral annular calcification. There is trace mitral valve regurgitation. There is no mitral valve stenosis. Pulmonic Valve The pulmonic valve is likely normal. Tricuspid Valve There is trace tricuspid valve regurgitation. Borderline RVSP. Great Vessels The asc aorta is normal in size. Venous The inferior vena cava is dilated and collapses less than 50% with inspiration. Pericardium/Pleural There is no evidence of pericardial effusion. Prior Study Comparison No significant change compared to prior study dated: 11/23/2024. Recommendations, Care & Conclusions No obvious valvular pathology seen on this study. Measurements 2D Linear Measurements IVSd: 0.87 0.6-0.9/0.6-1.0 cm LVIDd: 5.10 3.9-5.3/4.2-5.9 cm LVIDd Index: 2.64 2.4-3.2/2.2-3.1 cm/m2 LVIDs: 3.30 2.0-3.6 cm LVPWd: 0.87 0.7-1.1 cm LA Diam: 4.40 2.7-3.8/3.0-4.0 cm LAIDs Index: 2.28 1.5-2.3 cm/m2 LV Mass: 193.69 67-162/88-224 g LV Mass Index: 100.36 43-95/49-115 g/m2 LVOT Diam: 2.10 3.0+(-)1.3 cm 2D Systolic Function EF 4C: 53.00 >55% EF 2C: 47.70 >55% EF BiP: 50.00 >55% Mitral Valve MV Pk E: 0.87 MV PK A: 0.45 MV Decel Time: 201.00 E/A: 1.90 E'Lateral: 7.29 E'Medial: 3.70 E/E' Med: 23.40 E/E' Lat: 11.90 PHT: 59.00 MVA PHT: 3.73 Decel Peñuel[place]: 4.32 Aortic Valve AoV Pk Reggie: 1.03 AoV Pk Grad: 4.00 LUBNA: 2.73 LVOT LVOT Pk Reggie: 0.75 LVOT Mn Reggie: 0.51 LVOT VTI: 0.18 LVOT Pk Grad: 2.00 LVOT Mn Grad: 1.00 LVOT Diam: 2.10 LVOT Area: 3.46 Diastolic Function MV Pk E: 0.87 MV Pk A: 0.45 E/A: 1.90 E'Medial: 3.70 E/E' Med: 23.40 E' Laterial: 7.29 E/E' Lat: 11.90 Right Ventricle TAPSE (mm): 20.40 TVS' Reggie: 11.00 Tricuspid Valve TR Pk Reggie: 2.36 TR Pk Grad: 22.00 RA Press: 15.00 RVSP: 37.00 Great Vessels Aorta Sinus of Valsalva: 3.90 2.0-3.5 cm Ao Asc: 3.70 2.1-3.4 cm Pulmonary Veins Pulm Vein S/D 0.80 Pulmonary Valve PV Pk Reggie: 0.61 Peak PV Grad: 1.00 Updated in Other Vendor System with Status of Final Ceasar Muhammad MD electronically signed on 06/06/2025 10:23:04 AM with status of Final
--- OUTSIDE RECORDS SUMMARY | 2025-06-05 09:29 | XMS_ITS | Patient Health Record ---
Author Organization [facility] Address [address] [place] [id number] Care Team Providers Care Physical Security Engineer Name Role Phone Dionne (RETIRED) Wong GONZALES Primary Care Provide r Sohan Wayne Unavailable [phone] Reason For Referral No Information Medications Medication SIG (Take, Route, Frequency, Duration) Notes Start Date End Date Status Colyte with Flavor Packs 227.1 GM As directed Orally As directed for 1 day(s) 10/06/2014 Active Baby Aspirin Active Multivitamins Orally Active Simvastatin 20 MG 1 tablet in the even ing Orally Once a day Active iron 1 tab Oral Active Lisinopril 5 MG 1 tablet Orally Once a day Active Problems Problem Type SNOMED Code ICD Code Onset Dates Problem Status W/U Status Risk Notes Problem Screening for colon cancer (358128192) Screening for colon cancer (V76.51) Active confirmed Problem Long-term use of aspirin therapy (V58.66) Active confirmed Plan Of Treatment Future Test Test Name Order Date COLONOSCOPY 10/03/2014 Insurance Providers Payer Name Payer Address Payer Phone Subscriber Number Group Number Insured Name Patient Relationship to Insured Coverage Start Date Coverage End Date MEDICARE OF [place] [address] [place] [address] [id number] GERA AMADOR Self - patient is the insured [employer] ATTN CLAIMS [address] [place] [address] [phone] [id number] GERA AMADOR Self - patient is the insured Medical (General) History Medical History History ICD Code EGD and Colonoscopy 4-done for the evaluation of anemia and loose BM's--the upper endoscopy was normal, including duodenal biopsies; the colonoscopy was normal other than some internal hemorrhoids--biopsies were negative for microscopic colitis Anemia HTN Denies KS,DM,CVA,Lung disease,renal dise ase Hyperlipidemia
== END ==
LOC: HO.CARD 08:30
DX: I48.92 Unspecified atrial flutter (principal)
CPT/HCPCS: 93242; 93306

== ENCOUNTER → 2025-06-05 08:33 | Outpatient (BNV) | payer MEDICARE, SELFPAY | PROVIDERS: Visit Provider Internal Medicine | DX: I48.92 Unspecified atrial flutter (principal); I51.89 Other ill-defined heart diseases | CPT/HCPCS: 93306; 93356 ==

== ENCOUNTER 2025-07-30 08:09 | Outpatient (AMB) | payer MEDICARE, SELFPAY ==
--- NOTE | 2025-07-30 08:04 | A.OFFPC_ITS ---
Vital Signs 07/30/25 08:29 07/30/25 08:44 Height 5 ft 10.2 in Weight 76.204 kg BMI 24.0 BP 152/68 H 128/66 Blood Pressure Location Lt brachial Position Sitting Respiration 20 Pulse 58 Pulse Source Pulse Oximeter Temp 98.5 F Temp Source Temporal Artery Scan Pulse Oximetry (%) 99 Oxygen Delivery Method Room Air Intake Visit Reasons: physical [employer] Required: No Accompanied by: Self / Same As Patient Allergies No Known Allergies Allergy (Verified 07/30/25 08:05) Medication List - Last Reconciled 07/30/25 by RUIZ Curry apixaban (Eliquis) 5 mg PO BID dronedarone 400 mg PO BID lisinopril 20 mg PO DAILY 90 days metoprolol succinate ER 50 mg PO BID multivitamin 1 tab PO DAILY pravastatin 40 mg PO BEDTIME Tobacco use date assessed: 01/22/25 Fall risk assessment: No Falls in past year Last assessed Fall Risk: 07/30/25 Dental Screening Dental Screen Date: 01/22/25 Did you have a dental visit in the last 12 months?: Yes Did you have a dental problem in the last 6 months where you did not have access to dental care?: No Was dental information given to patient?: Patient has dentist HPI HPI Comments History of Present Illness Details 84 year old male with history of paroxys mal atrial flutter, hld, htn presents to the office for management of chronic conditions and annual physical exam. Lives with his of 60 years and feels safe there. 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 No exercise. Cooks all meals at home. 2 drinks several days per week. Quit 20+ years ago. No drugs including marijuana. Paroxymal atrial flutter- s/p cardioversion. Appt with cards tomorrow- Glendy. On Eliquis for anticoagulation as well as Multaq, Toprol. No palpitations, dyspnea, lightheadedness Hypertension-blood pressure on recheck 128/66. On lisinopril 20 mg, Toprol 50 mg twice daily Hyperlipidemia-pravastatin 40 mg Concerns: None Health Maintenance: No more colonscopy Reviewed past medical, surgical, family, and social history PFS Medical History History of cardioversion Paroxysmal atrial flutter Hard of hearing Atrial flutter High cholesterol HTN (hypertension) Surgical History History of surgery Hx of colonoscopy (~02/22/15) Family History Father No problems noted. Mother No problems noted. Social History Housing: House Are you a primary medicare compliance auditor to a significant other at home: No Do you presently have visiting nurse or other home services: No Alcohol intake: current Alcohol intake frequency: holidays/special occasions only Patient Tobacco Use Status: Former Tobacco user Tobacco use type: Cigarette e-Cigarette/Vaping Use: Never Used service: Yes ([email or web address]) Current occupational status: retired Cognitive needs: No Hearing needs: No Vision needs: Yes (Reading glasses) Questionnaire Thrive Questionnaire Date Thrive assessed: 01/22/25 AUDIT C Alcohol Use Questionnaire (AUDIT-C) 1. How often do you have a drink containing alcohol?: 2-3 times a week 2. How many drinks containing alcohol do you have on a typical day when you are drinking?: 1 or 2 3. How often do you have six or more drinks on one occasion?: Never Total Score: 3 ROSY-7 AMB Questionnaire ROSY-7 Date ROSY - 7 assessed: 01/22/25 Source: Developed by Drs. Sohan Porter, Elle Pompa, Yong Elizondo and colleagues, with an educational renetta from [employer]. Physical exam (Primary Care) Vital Signs: Last Vital Signs Temp 98.5 F 07/30/25 08:29 Pulse 58 07/30/25 08:29 Resp 20 07/30/25 08:29 BP 128/66 07/30/25 08:44 Pulse Ox 99 07/30/25 08:29 Oxygen Delivery Method Room Air 07/30/25 08:29 BMI result Body Mass Index 24.0 Tobacco/Smoking Status: Tobacco use Status Tobacco use date assessed 01/22/25 07/30/25 08:05 Patient Tobacco Use Status Former Tobacco user 07/30/25 08:05 Tobacco use type Cigarette 07/30/25 08:05 e-Cigarette/Vaping Use Never Used 07/30/25 08:31 Thrive Assessment: Date of Thrive Assessment Date Thrive assessed 01/22/25 07/30/25 08:05 Advance Care Planning discussion: Exists, not on file Date of discussion: 07/30/25 Forms completed: Health Care Proxy and MOLST Time spent: 1-15 minutes, on File Coding Level of Care Code Est Pt Level 4 (05184) New Pt Prev Care >65yr (41006) Diagnoses Routine medical exam Z00.00 Atrial flutter I48.92 HTN (hypertension) I10 High cholesterol E78.00 Additional Codes Vital Signs *Quality* - Advance Care Planning discussion: Exists, not on file ([id number]) Vital Signs *Quality* - Time spent: 1-15 minutes, on File ([id number]) Assessment & Plan Assessment & Plan (1) Routine medical exam: Code(s): Z00.00 - Encounter for general adult medical examination without abnormal findings Plan: 85-year-old male presenting for management of chronic conditions and for annual physical exam. Plan as below (2) Atrial flutter: Code(s): I48.92 - Unspecified atrial flutter Category: Medical Plan: cardioversion 12/2024, stable, remains in NSR. Continue eliquis for anticoagulat ion and Multaq for rhythm control. Continue metoprolol for rate control. Follow up with cardiology as scheduled on 07/31 (3) HTN (hypertension): Code(s): I10 - Essential (primary) hypertension Category: Medical Plan: Controlled on recheck. Continue lisinopril 20 mg and Toprol 50 mg twice daily (4) High cholesterol: Code(s): E78.00 - Pure hypercholesterolemia, unspecified Category: Medical Plan: Lipid profile ordered. Continue pravastatin 40 mg. Follow diet low in saturated fats and highly processed foods Plan Follow-up in 6 months with labs completed prior to visit Routine screening labs as ordered below No more colonscopies Continue using skin exams Annual eye exams Dental exams twice yearly Wear seat belt in car Recommend regular exercise and healthy diet Keep up-to-date on vaccinations
[2025-07-30 08:29] VITALS: BP 152/68; PULSE 58; RESP 20; TEMP 36.9; O2SAT 99; BMI 24.0
[2025-07-30 08:44] VITALS: BP 128/66
== END 2025-07-30 09:03 | disposition home or self-care (01) ==
PROVIDERS: PCP Physician Assistant; Visit Provider Physician Assistant
DX: I48.92 Unspecified atrial flutter (principal); I10 Essential (primary) hypertension; E78.00 Pure hypercholesterolemia, unspecified; Z00.00 Encounter for general adult medical examination without abnormal findings

== ENCOUNTER → 2025-07-30 08:09 | Outpatient (BNVA) | payer MEDICARE, SELFPAY | PROVIDERS: Visit Provider Physician Assistant | DX: Z00.00 Encounter for general adult medical examination without abnormal findings (principal); I48.92 Unspecified atrial flutter; I10 Essential (primary) hypertension; E78.00 Pure hypercholesterolemia, unspecified; Z98.890 Other specified postprocedural states; Z79.01 Long term (current) use of anticoagulants | CPT/HCPCS: 99212 ==

== ENCOUNTER 2025-07-31 12:19 | Outpatient (AMB) | payer MEDICARE, SELFPAY ==
[2025-07-31 12:40] VITALS: BP 132/64; PULSE 52; BMI 23.6
--- NOTE | 2025-07-31 12:40 | A.OFFVIS_ITS ---
Vital Signs 07/31/25 12:40 Height 5 ft 11 in Weight 169 lb 5.04 oz BMI 23.6 BP 132/64 Blood Pressure Location Lt brachial Position Sitting Pulse 52 Pulse Source Monitor Intake Visit Reasons: 6 mth f/up holter/ echo Registered Nursing Professor Required: No Accompanied by: Self / Same As Patient Allergies No Known Allergies Allergy (Verified 07/31/25 12:43) Medication List - Last Reconciled 07/31/25 by Baltazar Sexton NP apixaban (Eliquis) 5 mg PO BID dronedarone 400 mg PO BID lisinopril 20 mg PO DAILY 90 days metoprolol succinate ER 50 mg PO BID multivitamin 1 tab PO DAILY pravastatin 40 mg PO BEDTIME HPI Comments Details: This is an 85-year-old male patient coming in for a follow-up visit. Patient with a history of paroxysmal atrial flutter and hypertension. Patient had undergone a cardioversion back in 2021 and had a recurrence back in 2022 where patient was supposed to be started on Multaq however patient never started this. Patient underwent another cardioversion back on 12/28/2019 with a successful cardioversion back to normal sinus. Previously, patient has been under a lot of stress due to his being sick and possible in eating hospice care however patient states that his is doing much better now and is in the nursing. Patient is reporting feeling well overall without any cardiac symptoms of exertional chest pain, shortness of breath, palpitations, dizziness, orthopnea, PND, leg edema, presyncope or syncope. Patient is reporting compliance with all his medications. [facility] Medical History History of cardioversion Paroxysmal atrial flutter Hard of hearing Atrial flutter High cholesterol HTN (hypertension) Surgical History History of surgery Hx of colonoscopy (~02/22/15) Family History Father No problems noted. Mother No problems noted. Social History Housing: House Are you a primary critical care registered nurse to a significant other at home: No Do you presently have visiting nurse or other home services: No Alcohol intake: current Alcohol intake frequency: holidays/special occasions only Patient Tobacco Use Status: Former Tobacco user Tobacco use type: Cigarette e-Cigarette/Vaping Use: Never Used service: Yes ([employer]) Current occupational status: retired Cognitive needs: No Hearing needs: No Vision needs: Yes (Reading glasses) Review of Systems Const Denies daytime sleepiness, Denies difficulty sleeping, Denies snoring, Denies stops breathing during sleep and Denies weakness Card Denies chest pain, Denies rapid heart rate, Denies irregular heart rhythm, Denies claudication, Denies leg edema, Denies lightheadedness, Denies palpitations, Denies dyspnea, Denies dyspnea on exertion, Denies orthopnea, Denies paroxysmal nocturnal dyspnea and Denies slow heart rate Resp Denies cough, Denies dyspnea, Denies dyspnea on exertion and Denies snoring GI Reports no additional complaints, Denies hematochezia, Denies change in stool character and Denies dyspepsia Musc Denies abnormal gait, Denies muscle weakness and Denies numbness Neuro Denies abnormal gait, Denies numbness and Denies weakness Endo Denies palpitations Physical Exam Vital Signs: Last Vital Signs Pulse 52 07/31/25 12:40 BP 132/64 07/31/25 12:40 BMI result Body Mass Index 23.6 Const General: cooperative, healthy appearing, comfortable and no acute distress Orientation/consciousness: patient oriented x3 HEENT Head: Yes normal to inspection Neck Neck: Yes normal visual inspection, Yes trachea midline and Yes supple Chest Chest palpation & inspection: normal inspection of the chest Resp Effort & Inspection: normal respiratory effort Auscultation: clear to auscultation bilaterally, no crackles, no rales, no rhonchi and no wheezes Cardio Jugular venous distension: no JVD Palpation: normal PMI Rate: bradycardic Rhythm: regular rhythm Heart sounds: S1 normal heart sound present, S2 normal heart sound present, no click, no gallops, no murmurs and no rubs Peripheral pulses: Peripheral pulses 2+ throughout GI Inspection: Yes normal to inspection Palpation (GI): Soft to palpation Auscultation: normal bowel sounds Skin General skin exam: no rashes or lesions noted Neuro General: patient oriented x3 Extrem General: Yes normal to inspection, No no pedal edema and No calf tenderness Psych Appearance: grossly normal Mental Status: mental status grossly normal Speech and movement: Normal speech and movement present Office Procedures EKG Details: EKG today shows normal sinus, rate 52 beats per minute, nonspecific ST, [place], [place]. [id number], Complete Assessment & Plan Assessment & Plan (1) History of cardioversion: Code(s): Z92.89 - Personal history of other medical treatment Plan: Cardioversion back in 2021 with successful conversion to sinus rhythm however patient had a recurrence back in 2022. Patient was plan to start on Multaq however this was never done. Patient underwent another cardioversion on 12/27/[address] Pike with successful conversion to sinus rhythm. 06/05/2025-echo study showed a mildly decreased LV systolic function with an ejection fraction between 45-50%, grade 2 diastolic dysfunction, and mildly dilated right atrium and moderately dilated left atrium. 06/05/2025-Holter study showed a underlying normal sinus rhythm with a rare PACs and PVCs. No AFib. EKG today is normal rhythm. Clinically stable and without any cardiac symptoms. Continue Eliquis for full anticoagulation therapy. No reported signs of bleeding or falls. Continue Multaq and metoprolol therapy. Ablation had been discussed as a long-term rhythm control however patient is not interested and would like to wait until if he had another recurrence. Kidney function is stable. Patient has upcoming labs with PCP. We will monitor this periodically. (2) Atrial flutter: Code(s): I48.92 - Unspecified atrial flutter Category: Medical Plan: As above. (3) HTN (hypertension): Code(s): I10 - Essential (primary) hypertension Category: Medical Plan: Blood pressure today is well-controlled. Continue current regimen. Advised monitoring blood pressures at home with a goal of less than 130/80. Advised heart healthy diet, regular exercise, med compliance, and emphasized on stress medication strategies. We will follow up in 6 months. In the interim, patient will call the office with any concerns or change in symptoms. This note was generated using voice recognition software. While every effort has been made to ensure accuracy and proper field operations farm manager, there may be occasional errors that could affect the content or meaning of the described symptoms. Orders: Orders AMB EKG-In Office Today I48.92 - Unspecified atrial flutter Coding Level of Care Code Est Pt Level 4 (92245) Complex EM visit Add On G2211 Diagnoses History of cardioversion Z92.89 Atrial flutter I48.92 HTN (hypertension) I10 CPT Codes EKG - CPT: 53486-[id number], Complete ([id number]) Time Spent (min) 32 Comment Time spent in reviewing the chart, test results, assessment, counseling and documentation.
== END 2025-07-31 13:01 | disposition home or self-care (01) ==
LOC: HO.HCS 12:19
PROVIDERS: PCP Internal Medicine
DX: Z92.89 Personal history of other medical treatment (principal); I48.92 Unspecified atrial flutter; I10 Essential (primary) hypertension
CPT/HCPCS: 93010; 99214; G2211

== ENCOUNTER → 2025-07-31 12:19 | Outpatient (BNVA) | payer MEDICARE, SELFPAY | PROVIDERS: PCP Internal Medicine | DX: I48.92 Unspecified atrial flutter (principal); I10 Essential (primary) hypertension; Z92.89 Personal history of other medical treatment | CPT/HCPCS: 93005; 99212 ==